=== PATIENT | male | born 1960 | race Caucasian/White ===

== ENCOUNTER → 2017-11-23 03:15 | Outpatient (CLI) | payer BC, SELFPAY ==
[2017-11-23 14:04] LABS: C-Reactive Protein 0.07 mg/dL (0.0-0.3); CREATININE 0.68 mg/dL (0.70-1.30); Potassium 4.5 mmol/L (3.5-5.1)
== END ==
PROVIDERS: PCP Family Medicine; Visit Provider Family Medicine
DX: M25.50 Pain in unspecified joint (principal); I10 Essential (primary) hypertension
CPT/HCPCS: 36415; 82565; 84132; 86140

== ENCOUNTER → 2017-11-24 01:35 | Outpatient (CLI) | payer BC, SELFPAY ==
--- NOTE | 2017-11-24 12:59 | SCREENCT_ITS ---
SYMPTOMS/DIAGNOSIS: [id number] SMOKER, ENCOUNTER FOR SCREENING FOR LUNG CA, Z13.[address] FOR LUNG CANCER SCREENING: The study was carried out according to the usual protocol. Emphysematous changes are noted in the lungs. There is no infiltrate. No pulmonary nodules are identified. The heart is not enlarged. Coronary artery calcifications is demonstrated. There are atherosclerotic changes involving the aorta with no evidence of an aneurysm. SUMMARY: This is a lung RAD category 1 examination. Followup surveillance with LDCT screening in 12 months is recommended. Lung-RAD Category: 1- Negative Lung- RAD Management of Findings: Continue annual LDCT screening in 12 months
== END ==
PROVIDERS: PCP Family Medicine; Visit Provider Family Medicine
DX: Z12.2 Encounter for screening for malignant neoplasm of respiratory organs (principal); F17.210 Nicotine dependence, cigarettes, uncomplicated; J43.9 Emphysema, unspecified; I70.0 Atherosclerosis of aorta
CPT/HCPCS: G0297

== ENCOUNTER 2018-01-27 06:10 | Day surgery (SDC) | payer BC, SELFPAY ==
[2018-01-27 06:17] VITALS: BP 155/107; PULSE 107; RESP 16; TEMP 37.7; O2SAT 96
--- NOTE | 2018-01-27 07:15 | COLE_ITS ---
Date of service: 01/27/18 Time of Service: 07:14 Colonoscopy Report Date of procedure: 01/27/18 Pre-op diagnosis general: Personal History of Colon Polyps Post-op diagnosis procedure note: other Procedure: Colonoscopy to the cecum Surgeon: Domingo Glass Anesthesia proc note operative: MAC (Katie Baer CRNA; ASA 2, Mallampati class II) Estimated blood loss (mL): 0 Pathology: none sent Complications: None Disposition: same day Indications: 57-year-old gentleman presenting for colorectal cancer screening by colonoscopy. He has a personal history of colon polyps with a tubular adenoma found last colonoscopy. He also has a family history of colorectal cancer; his brother was diagnosed with colon cancer in his 50s. The colonoscopy procedure was reviewed with him, and all the risks discussed. All his questions were answered to his satisfaction. Prep: Miralax/Dulcolax (Prep quality good) Procedure Start Time: 07:38 Procedure End Time: 07:50 Retraction Time: 8 min Findings: In examining the colon from cecum to anus, no abnormalities were noted. Procedure Description: The patient was seen in the day surgery waiting area. His identification was confirmed, and procedure check. He was then brought to the procedure room. Monitoring for telemetry, blood pressure, oxygen saturation, and end tidal CO2 monitoring were applied. An appropriate time out was performed to confirm, identification, allergies, medication, procedure, was performed. Sedation was titrated for affect by the BEAUTY SHOP MANAGER; Once adequate sedation was achieved, I performed a inspection of the external perineum, and a digitial rectal examination. No significant external abnormalities were noted. On digital rectal examination, there was no blood, no masses, good rectal tone, and a normal prostate. I advanced the colonoscope from the anus to the cecum under direct visualization. The cecum was identified by the ileal-cecal valve, and the appendiceal orifice. The scope was then withdrawn in circumferential manner from the cecum to the rectum. No abnormalites were noted in the colon. The scope was then withdrawn into the rectum, and retroflexed. No abnormalities were noted of the rectum or anorectal junction. The scope was then withdrawn, terminating the procedure. There were no complications during the procedure, and the patient tolerated the procedure well. He was returned to the day surgery recovery area in good condition. Plan: Will continue with routine screening for colorectal cancer according to current consensus guidelines, which is currently 5 years with a family history of colon cancer.
[2018-01-27] MEDS: Lactated Ringers 1,000 ML 30 ML IV (07:33)
--- NOTE | 2018-01-27 08:00 | W.PM.DSUDISC ---
Discharge Plan Disposition Patient Disposition: HOME Condition: Good Discharge Details Reason For Visit: Colorectal cancer screen Attending Provider: Domingo Glass Primary Care Provider: Jeffrey Cheng Home Meds and New Rx's Prescriptions: Continue aspirin [Aspir-81] 81 MG tablet,delayed release (DR/EC) 81 mg PO DAILY RF: 0 finasteride 5 MG tablet 5 mg PO HS Qty: 90 RF: 4 omeprazole 40 MG capsule,delayed release(DR/EC) 40 mg PO DAILY Qty: 90 RF: 3 lisinopril 5 MG tablet 5 mg PO DAILY Qty: 90 RF: 3 acetaminophen [Tylenol Extra Strength] 500 mg Tablet 1,000 mg PO Q6H PRNRF: 0 Discharge Instructions Instructions: Colonoscopy (DC) Activity:: Activity as Tolerated Diet:: As Tolerated Discharge Orders Discharge Orders: Discharge Order (Routine); Ordered 01/27/18 Ordered By: Domingo Glass DS: Diagnosis Discharge Diagnosis (1) History of adenomatous polyp of colon: Status: Chronic Asessment and Plan: Colonoscopy performed Colonoscopy Report Date of procedure: 01/27/18 Pre-op diagnosis general: Personal History of Colon Polyps Post-op diagnosis procedure note: other Procedure: Colonoscopy to the cecum Surgeon: Domingo Glass Anesthesia proc note operative: MAC (Katie Baer CRNA; ASA 2, Mallampati class II) Estimated blood loss (mL): 0 Pathology: none sent Complications: None Disposition: same day Indications: 57-year-old gentleman presenting for colorectal cancer screening by colonoscopy. He has a personal history of colon polyps with a tubular adenoma found last colonoscopy. He also has a family history of colorectal cancer; his brother was diagnosed with colon cancer in his 50s. The colonoscopy procedure was reviewed with him, and all the risks discussed. All his questions were answered to his satisfaction. Prep: Miralax/Dulcolax (Prep quality good) Procedure Start Time: 07:38 Procedure End Time: 07:50 Retraction Time: 8 min Findings: In examining the colon from cecum to anus, no abnormalities were noted. Procedure Description: The patient was seen in the day surgery waiting area. His identification was confirmed, and procedure check. He was then brought to the procedure room. Monitoring for telemetry, blood pressure, oxygen saturation, and end tidal CO2 monitoring were applied. An appropriate time out was performed to confirm, identification, allergies, medication, procedure, was performed. Sedation was titrated for affect by the DISTANCE LEARNING COORDINATOR; Once adequate sedation was achieved, I performed a inspection of the external perineum, and a digitial rectal examination. No significant external abnormalities were noted. On digital rectal examination, there was no blood, no masses, good rectal tone, and a normal prostate. I advanced the colonoscope from the anus to the cecum under direct visualization. The cecum was identified by the ileal-cecal valve, and the appendiceal orifice. The scope was then withdrawn in circumferential manner from the cecum to the rectum. No abnormalites were noted in the colon. The scope was then withdrawn into the rectum, and retroflexed. No abnormalities were noted of the rectum or anorectal junction. The scope was then withdrawn, terminating the procedure. There were no complications during the procedure, and the patient tolerated the procedure well. He was returned to the day surgery recovery area in good condition. Plan: Will continue with routine screening for colorectal cancer according to current consensus guidelines, which is currently 5 years with a family history of colon cancer. (2) Family history of colon cancer: Status: Chronic Asessment and Plan: see other
[2018-01-27 08:30] VITALS: BP 160/99; PULSE 86; RESP 16; TEMP 37; O2SAT 97
== END 2018-01-27 08:35 | disposition home or self-care (01) ==
PROVIDERS: PCP Family Medicine; Visit Provider Surgery
PROC: 0DJD8ZZ Inspection of Lower Intestinal Tract, Via Natural or Artificial Opening Endoscopic (ICD-10-PCS; CPT 45378; principal; 2018-01-27 07:30)
DX: Z12.11 Encounter for screening for malignant neoplasm of colon (principal); Z86.010 Personal history of colon polyps; Z80.0 Family history of malignant neoplasm of digestive organs; K21.9 Gastro-esophageal reflux disease without esophagitis; I10 Essential (primary) hypertension; F17.210 Nicotine dependence, cigarettes, uncomplicated
CPT/HCPCS: 45378

== ENCOUNTER 2019-12-28 22:16 | Outpatient (REF) | payer BC, SELFPAY ==
[2019-12-28 21:29] LABS: CREATININE 0.76 mg/dL (0.70-1.30); Calculated LDL 116 mg/dL (<100); Cholesterol 203 mg/dL (<200); Glucose 88 mg/dL (74-106); HDL Cholesterol 69 mg/dL (40-60); Potassium 4.3 mmol/L (3.5-5.1); Triglyceride 90 mg/dL (<150)
== END 2019-12-28 22:36 ==
LOC: LBN 22:16
PROVIDERS: PCP Family Medicine; Visit Provider Family Medicine
DX: I10 Essential (primary) hypertension (principal); E78.5 Hyperlipidemia, unspecified; R73.9 Hyperglycemia, unspecified
CPT/HCPCS: 80061; 82947; 82565; 84132

== ENCOUNTER 2020-12-08 23:33 | Outpatient (CLI) | payer BC, SELFPAY ==
--- NOTE | 2020-12-08 15:15 | DI.RAD_ITS ---
Exam(s) XR ABDOMEN FLAT UPRIGHT EXAM: 2D digital imaging was performed. CLINICAL HISTORY: R/O obstuction-- distention with liquid stool r10.9 abdominal pain. COMPARISON: No exams were available for comparison TECHNIQUE: Supine and uprightSupine and Lateral views of the abdomen was performed. FINDINGS: BOWEL GAS PATTERN: No distension. No free air. No significant stool visible. CALCIFICATIONS: No radiopaque calcifications. OSSEOUS STRUCTURES: Degenerative changes in the spine. OTHER FINDINGS: Lung bases clear. No organomegaly. IMPRESSION: 1. Nonobstructive bowel gas pattern. 2. No radiopaque calculi. 3. No free air. DATA REPOSITORY: RADIATION DOSE DELIVERED:
== END 2020-12-08 23:53 ==
PROVIDERS: PCP Family Medicine; Visit Provider Nurse Practitioner Family
DX: R10.9 Unspecified abdominal pain (principal)
CPT/HCPCS: 74019

== ENCOUNTER 2020-12-31 18:25 | Outpatient (REF) | payer BC, SELFPAY ==
[2020-12-31 18:47] LABS: CREATININE 0.8 mg/dL (0.70-1.30); Potassium 4.1 mmol/L (3.5-5.1)
[2021-01-01 19:42] LABS: PSA, Screening 3.2 ng/mL (0.0-3.5)
== END 2020-12-31 18:26 | disposition home or self-care (01) ==
LOC: LBN 18:25
PROVIDERS: PCP Family Medicine; Visit Provider Family Medicine
DX: I10 Essential (primary) hypertension (principal); Z12.5 Encounter for screening for malignant neoplasm of prostate
CPT/HCPCS: 84153; 82565; 84132

== ENCOUNTER 2021-10-15 01:15 | Outpatient (CLI) | payer BC, SELFPAY ==
--- OUTSIDE RECORDS SUMMARY | 2021-10-15 01:16 | XMS_ITS | Encounter Summary ---
:1960 Author Organization [facility] [place] [address] Care Team Providers Name Role Phone Jose Alberto Lindo DO Primary Care Provider Encounter Details Date Type Department Care Team Description 04/12/2014 Orders Only Vascular Surgery at Ivonne Fritz Bi lateral lower [facility] [place] [address] Social History Tobacco Use Types Packs/Day Years Used Date Never Assessed Sex Assigned at Date Recorded Not on file documented as of this encounter Plan of Treatment Not on filedocumented as of this encounter Results BEVERLY, legs, multiple levels (04/25/2014 9:34 AM EST) Component Value Ref Test Analysis Performed At [place] Communication Range Method Time Signature VB Text VASCUBASE Report Department: Vascular Surgery Lab Patient: [id number] (KURT BOJORQUEZ) CPT Code: 81060 ICD-9: 440.20; 729.5 Referring Physician: LULI LE Indication: ??Patient with bilateral lower extre mity pain and numbness R>L, ? PAD ICD9 Diagnosis Code: 440.20 Limb Pain [729.5]. Diabetes Mellitus: No Definitions: ?? BEVERLY = Ankle / Brachial Systolic Pressure I ndex, TBI = Toe / Brachial Systolic Pressure Index Findings: Right ?Pressure (mm Hg) ?? BEVERLY ??Waveform ? TBI ?? Brachial Artery ?167 ? Common Femoral Artery ?Triphasic ? Pop Fossa ?Biphasic-Rev ? Dorsalis Pedis (Ankle) Arter y ?150 ? 0.90 ??Bi-Triphasic ? Posterior Tibial (Ankle) Art sesar ??158 ? 0.95 ??Bi-Triphasic ? Great Toe ?71 ?0.43 ?? Left ? Pressure (mm Hg) ?? BEVERLY ??Waveform ? TBI ?? Brachial Artery ?165 ? Common Femoral Artery ?Triphasic ? Pop Fossa ?Biphasic-Rev ? Dorsalis Pedis (Ankle) Arter y ?153 ? 0.92 ??Bi-Triphasic ? Posterior Tibial (Ankle) Art sesar ??150 ? 0.90 ??Bi-Triphasic ? Great Toe ?96 ?0.57 ?? Interpretation: RIGHT: Mild lower extremity arterial occlusive disease to th e level of the calf. Toe-brachial index (moderate range) lower than ankle-b rachial index indicates presence of arterial occlusive disease in the distal calf and foot. LEFT: Mild lower extremity arterial occlusive disease. Comparison: ??No previous study in our vascular lab da tabase for comparison. Electronically Signed by: KIP LOZA on 2014-04-25 02:31:3 6 PM VB Text End of Report VASCUBASE Report Specimen (Source) Anatomical Collection Method Collection Time Re ceived Time Location / / Volume Laterality 04/25/2014 9:34 AM EST Luli Le MD VASCULAR ORDERABLES Performing Organization Address City/State/ZIP Code Phon e Number VASCUBASE documented in this encounter Visit Diagnoses Diagnosis Bilateral lower extremity pain Pain in limb documented in this encounter Care Teams Plating Inspector Relationship Specialty Start Date End Date Jose Alberto Lindo DO PCP - General 02/17/10 04/24/14 [address] [place] [address] documented as of this encounter
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
--- OUTSIDE RECORDS SUMMARY | 2021-10-15 01:16 | XMS_ITS | Encounter Summary ---
:1960 Author Organization [facility] [address] Care Team Providers Name Role Phone Jackson Mark MD Primary Care Provider Encounter Details Date Type Department Care Team Description 04/25/2014 Ancillary Vascular Surgery at [facility] lower Appointment [facility] [place] [address] Social History Tobacco Use Types Packs/Day Years Used Date Current Every Day Smoker 0.5 Alcohol Use Standard Drinks/Week Comments Not Asked 0 (1 standard drink = 0.6 oz pure alcoho l) Sex Assigned at Date Recorded Not on file documented as of this encounter Plan of Treatment Not on filedocumented as of this encounter Procedures Procedure Name Priority Date/Time Associated Diagnosis Comme nts BEVERLY, LEGS, MULTIPLE Routine 04/25/2014 9:34 AM Bilateral lower Results for this LEVELS EST extremity pain procedure are in the results section. documented in this encounter Results BEVERLY, legs, multiple levels (04/25/2014 9:34 AM EST) Component Value Ref Test Analysis Performed At [facility] Range Method Time Signature VB Text VASCUBASE Report Department: Vascular Surgery Lab Patient: [id number] (KURT BOJORQUEZ) CPT Code: 40726 ICD-9: 440.20; 729.5 Referring Physician: LULI LE [...] limb documented in this encounter Care Teams Principal Investigator Relationship Specialty Start Date End Date Jackson Mark MD PCP - General 04/25/14 documented as of this encounter
--- OUTSIDE RECORDS SUMMARY | 2021-10-15 01:16 | XMS_ITS | Clinical Summary ---
:1960 Author Organization [facility] [place] [address] Care Team Providers Name Role Phone Jackson Mark MD Primary Care Provider Allergies Active Allergy Reactions Severity Noted Date Comments Amoxicillin Trihydrate Sulfa (Sulfonamide Antibiotics) Medications Medication Sig Dispensed Refills Start Date End Date Status omeprazole (PRILOSEC) 40 Take 40 mg by 0 Active mg Capsule, Delayed mouth daily. Release(E.C.) cyanocobalamin 500 mcg Take 500 mcg by 0 Active Tablet mouth daily. Active Problems Problem Noted Date Bilateral leg pain 04/25/2014 Family History Medical History Relation Comments Hypertension Brother Coronary Artery Disease Father Coronary Artery Disease Mother Hyperlipidemia Mother Hypertension Mother Relation Status Comments Brother Father Mother Social History Tobacco Use Types Packs/Day Years Used Date Current Every Day Smoker 0.5 Alcohol Use Standard Drinks/Week Comments Not Asked 0 (1 standard drink = 0.6 oz pure alcoho l) Sex Assigned at Date Recorded Not on file Last Filed Vital Signs Vital Sign Reading [...] Mass Index 25.1 04/25/2014 10:13 AM EST Plan of Treatment Health Maintenance Due Date Last Done Comments Covid-19 Vaccine (#1) 1966 HIV screen 1979 Hepatitis C Screening 1979 Lipid Screening 1979 Tdap adult 1980 Tetanus vaccine 1980 Colonoscopy 2006 Zoster vaccine (1 of 2) 2011 Advance Directive 2016 Influenza (Flu) vaccine (1 of 1 - Influenza standard 11/26/2021 series) Care Teams Environmental Laboratory Technician Relationship Specialty Start Date End Date Jackson Mark MD PCP - General 04/25/14
--- OUTSIDE RECORDS SUMMARY | 2021-10-15 01:16 | XMS_ITS | Encounter Summary ---
:1960 [place] [address] Care Team Providers Name Role Phone Jackson Mark MD Primary Care Provider Encounter Details Date Type Department Care Team Description 01/31/2014 Orders Only Vascular Surgery at [facility] Amaya Faustin MD [facility] [place] [address] VASCULAR SURGERY [phone] [place], [place] [address] (Wo rk) Social History Tobacco Use Types Packs/Day Years Used Date Never Assessed Sex Assigned at Date Recorded Not on file documented as of this encounter Plan of Treatment Not on filedocumented as of this encounter Procedures Procedure Name Priority Date/Time Associated Comments Diagnosis FILM LIBRARY STORAGE Routine 01/31/2014 1:03 PM R esults for this ONLY ULTRASOUND EST procedure ar e in STUDY the results section. documented in this encounter Results Film Library- Storage only Ultrasound Study (01/31/2014 1:03 PM EST) Anatomical Region Laterality Modality Other Specimen (Source) Anatomical Collection Method Collection Time Re ceived Time Location / / Volume Laterality 01/31/2014 1:03 PM EST Narrative 04/25/2014 1:04 PM EST This is a Non-reportable exam Procedure Note RIVER, UNSIGNED REPORT - 04/25/2014Formatt ing of this note might be different from the original. This is a Non-reportable exam Amaya Faustin MD IMG FILM LIBRARY ORDERABLES documented in this encounter Visit Diagnoses Not on filedocumented in this encounter Care Teams Assistant Auto Center Manager Relationship Specialty Start Date End Date Jacksno Mark MD PCP - General 04/25/14 documented as of this encounter
== END 2021-10-15 01:16 | disposition home or self-care (01) ==
LOC: LBO 01:15
PROVIDERS: PCP Family Medicine; Visit Provider Urology
DX: R97.20 Elevated prostate specific antigen [PSA] (principal)
CPT/HCPCS: 36415; 84153

== ENCOUNTER 2021-10-30 15:56 | Outpatient (CLI) | payer BC, SELFPAY ==
--- NOTE | 2021-10-30 14:18 | DI.RAD_ITS ---
Exam(s) XR RIBS LT W PA LAT CHEST EXAM: XR RIBS LT W PA LAT CHEST CLINICAL HISTORY: Left rib pain, R07.81, PLEURODYNIA TECHNIQUE: 2D digital imaging was performed. COMPARISON: No exams were available for comparison FINDINGS: MEDIASTINUM: Normal. HEART: Normal. PULMONARY VASCULATURE: Normal. LUNGS: Clear. The lungs are hyperinflated suggesting underlying COPD. PLEURAL SPACE: No pleural effusion or pneumothorax. BONE:Within normal limits for the patient's age. LEFT RIBS: Normal. OTHER FINDINGS:Normal. IMPRESSION: 1. No acute pulmonary findings. 2. Unremarkable left ribs. DATA REPOSITORY: RADIATION DOSE DELIVERED:
== END 2021-10-30 16:16 ==
LOC: DI 15:59
PROVIDERS: PCP Family Medicine; Visit Provider Physician Assistant Medical
DX: R07.81 Pleurodynia (principal)
CPT/HCPCS: 71046; 71100

== ENCOUNTER 2023-07-18 15:20 | Outpatient (CLI) | payer BC, SELFPAY ==
[2023-07-18 13:56] LABS: HCT 40.8 % (40.0-50.0); MCH 33.6 pg (27.0-33.0); MCHC 36.8 % (32.0-36.0); MCV 92 fL (80-95); MPV 9.2 fL (8.0-11.0); Platelet Count 234 10^3/uL (130-400); RBC 4.46 10^6/uL (4.36-5.78); RDW 12.5 % (11.8-14.1); RDW-SD 42.2 fL; WBC 6.68 10^3/uL (4.4-10.8)
[2023-07-18 14:44] LABS: ALT 26 U/L (16-63); AST 32 U/L (15-37); Albumin 4.1 g/dL (3.4-5.0); Alkaline Phosphatase 77 U/L (46-116); Anion Gap 10.9 mmol/L (3-11); BUN 11 mg/dL (7-18); Bilirubin, Total 0.5 mg/dL (0.2-1.0); CO2 26.1 mmol/L (21.0-32.0); Calcium 9.2 mg/dL (8.5-10.1); Calculated LDL 84 mg/dL (<100); Chloride 96 mmol/L (98-107); Cholesterol 187 mg/dL (<200); Glucose 93 mg/dL (74-106); HDL Cholesterol 92 mg/dL (40-60); Potassium 4.8 mmol/L (3.5-5.1); Sodium 133 mmol/L (136-145); Total Protein 8.3 g/dL (6.4-8.2); Triglyceride 57 mg/dL (<150)
[2023-07-18 23:02] LABS: PSA, Screening 3.5 ng/mL (<=4.5)
== END 2023-07-18 15:21 | disposition home or self-care (01) ==
LOC: LBO 15:20
PROVIDERS: PCP Family Medicine; Visit Provider Surgery
DX: I10 Essential (primary) hypertension (principal); D12.6 Benign neoplasm of colon, unspecified; R97.20 Elevated prostate specific antigen [PSA]; Z80.0 Family history of malignant neoplasm of digestive organs; F17.200 Nicotine dependence, unspecified, uncomplicated; Z12.5 Encounter for screening for malignant neoplasm of prostate; E78.5 Hyperlipidemia, unspecified
CPT/HCPCS: 36415; 80053; 80061; 84153; 85027

== ENCOUNTER 2023-08-05 08:43 | Day surgery (SDC) | payer BC, SELFPAY ==
--- NOTE | 2023-08-04 16:33 | W.COLOREPORT ---
Date of service: 08/05/23 Time of Service: 11:15 Colonoscopy Report Date of procedure: 08/05/23 Pre-op diagnosis general: Hx os Adenomatous polyps 2015/Mother/brother CRC in 50's Post-op diagnosis procedure note: other (Polyps and diverticula) Surgeon: Emily Laguna Anesthesia Type: General:No Airway Estimated blood loss (mL): 1 Pathology: other Complications: None Disposition: same day Prep: Miralax/Dulcolax Retraction Time: 10 Procedure Description: After informed consent was obtained the patient was taken to the procedure room and placed in a left decubitous position. Monitors were applied and a time out was done. The patients name, date of , procedure, allergies to medications and metal in their body was reviewed. The patient was then sedated. Once sedated and comfortable a rectal exam was done. External exam was normal. Internal exam revealed a normal sphincter tone and no palpable masses. The prostate no palpable masses The scope was then introduced and retrofelexed. Grade 2 internal hemorrhoids x 3 columns were identified. The scope was then advanced to the cecum without difficulty. The TI and appendiceal orifice were identified. The scope was then slowly retracted over 10 minutes back into the rectum. Polyps were removed at he has x 2 flat 5 cm polyps at 70 cm and 30 cm. These were both removed with a cold biting forcep. All specimen is retrieved and no bleeding is noted. He has multiple small diverticula confined to the sigmoid colon. There is no signs of active bleeding or infection. Mucosa is pink and healthy with a normal vascular pattern.. The scope was removed and the patient was woken up and taken back to Same day surgery in stable condition. The patient tolerated the procedure well and there were no immediate complications. Follow up: The patient should follow up in 5 years unless they develop changes in bowel habits or other new gastrointestinal complaints.
--- NOTE | 2023-08-04 16:34 | PDOC.DSDIS_ITS ---
Date of service: 08/05/23 Time of Service: 11:12 Discharge Plan Disposition Patient Disposition: Home Condition: Good Discharge Details Reason For Visit: Colon Scope Attending Provider: Emily Laguna Primary Care Provider: Jeffrey Cheng Home Meds and New Rx's Prescriptions: Continued (DME) Aerochamber MV Spacer See Rx Instructions .Route Qty: 1 0RF Rx Instructions: As directed lisinopril 5 mg tablet 5 mg PO DAILY Qty: 90 3RF omeprazole 40 mg capsule,delayed release(DR/EC) 40 mg PO DAILY Qty: 90 3RF finasteride 5 mg tablet 5 mg PO DAILY Qty: 90 4RF tamsulosin 0.4 mg capsule 0.4 mg PO DAILY Qty: 90 4RF Discontinued polyethylene glycol 3350 17 gram/dose powder 238 g PO ONCE Qty: 238 0RF Rx Instructions: take per colonoscopy instructions bisacodyl [Dulcolax (bisacodyl)] 5 mg tablet,delayed release (DR/EC) 5 mg PO ONCE Qty: 4 0RF Rx Instructions: take per colonoscopy instructions Discharge Instructions Additional Instructions: DSU Colonoscopy Post- Op Instructions Instructions for Everyone who is given Anesthesia: For your safety, please do the following for the next twenty-four (24) hours: *Do Not operate a motor vehicle (car, truck, motorcycle, etc.) *Do Not drink alcoholic beverages or use any recreational drugs for the first 24 hours or while taking pain medications. The medications in your body may have a reaction that can be dangerous. *Do Not make any important decisions or sign any important papers. Findings: -Diverticulosis. Make sure you are moving your bowels on a regular basis and not straining to go to the bathroom. If you find you are having issues with chronic constipation or straining, then it is recommended you start a fiber product such as Metamucil. -Polyp You do have significant COPD and did not tolerate anesthesia well. You need to see a biodiesel product manager (lung doctor) and stop smoking Follow up: Repeat colonoscopy in 5 years time 1. No lifting over 20 pounds or strenuous activity for the first 24 hours after your procedure. After 24 hours there are no restrictions on your activity but you may feel fatigued for a few days. 2. After you arrive home you may have a light meal and return to your normal diet as you can tolerate it without feeling sick to your stomach. 3. You may have a bloated, gaseous feeling in your belly (abdomen) after a colonoscopy. Passing gas and belching will help. Walking or lying down on your left side with your knees flexed may relieve the discomfort. Call the office at [phone] (Office) or [phone] (Hospital) right away if you notice any of the following: a.Vomiting of blood or ?coffee ground stools?. b.Rectal bleeding 1Tbsp, blood clots or continuous bleeding. c.Severe belly (abdominal) pain. d.A hard distended belly (abdomen) and an inability to pass gas. 4. Please don?t expect to have a normal BM (bowel movement) for 2-3 days after your procedure. 5. If there are questions regarding the findings of your procedure, please contact your doctor 6. If you are unable to contact your doctor with a problem, contact the hospital at [phone]. 7. Continue all your regular medications unless directed otherwise. I understand the above instructions and have no questions. Signature of Patient or Adult Escort Name of Responsible Adult Escort Signature of Nurse Date/Time Activity:: see above Diet:: see above Discharge Orders Discharge Orders: Discharge Order (Routine); Ordered 08/05/23 Ordered By: Emily Laguna DS: Diagnosis Discharge Diagnosis (1) Hypertension: Status: Acute (2) Atherosclerosis of aorta: Status: Acute (3) Hearing loss: Status: Acute (4) Blindness of one eye: Status: Acute (5) Tubular adenoma of colon: Status: Resolved (6) Family history of colon cancer: Status: Chronic Asessment and Plan: The patient is seen and examined after their colonoscopy.? The patient has been able to pass gas.? They are not having abdominal pain.? They have been able to tolerate liquids and a snack.? They do not have any nausea or vomiting.? They are not having any chest pain or shortness of breath.??? They are not having any rectal bleeding. Their vital signs have been stable-see nursing notes. We discussed findings during their colonoscopy, and any biopsies that were done/polyps that were removed. The patient will be sent a letter with any biopsy results, and when to repeat the colonoscopy.-see discharge instructions. Patient was given explicit instructions to follow-up regarding colonoscopy-refer to discharge instructions.? We reviewed resumption of medications. Patient verbalized understanding and discharged in stable and satisfactory condition- See nursing notes. (7) Tubular adenoma: Status: Acute (8) COPD (chronic obstructive pulmonary disease): Status: Chronic (9) Emphysema lung: Status: Acute (10) Tobacco use disorder: Status: Acute (11) Diverticula of colon: Status: Acute
[2023-08-05 09:13] VITALS: BP 148/84; PULSE 106; RESP 16; TEMP 36.6; O2SAT 98
[2023-08-05] MEDS: Lactated Ringers 1,000 ML 80 ML IV (09:16)
--- NOTE | 2023-08-05 10:13 | ANES.PREOP_ITS ---
General Info Date of Service Date Performed: 08/05/23 Height: 5 ft 7.75 in Weight: 69.4 kg Body Mass Index (BMI): 23.4 Surgical Procedure: Operation Date: 08/05/23 09:50 Proposed Procedure Side Surgeon lita Laguna, DO Meds Allergies and Home Medications Allergies Allergy/AdvReac Type Severity Reaction Status Date / Time Penicillins Allergy Severe Anaphylaxsi Verified 08/05/23 08:52 s Sulfa (Sulfonamide Allergy Severe Skin Rash Verified 08/05/23 08:52 Antibiotics) cyanocobalamin (vitamin B12) AdvReac Unknown Diarrhea/GI Verified 08/05/23 08:52 Home Medication Medication Instructions Recorded finasteride 5 mg tablet 5 mg PO DAILY prostate #90 tabs 07/16/22 tamsulosin 0.4 mg capsule 0.4 mg PO DAILY urination #90 caps 07/16/22 inhalational spacing device #1 ea 09/23/22 (Aerochamber MV spacer) lisinopril 5 mg tablet 5 mg PO DAILY #90 tab-caps 02/24/23 omeprazole 40 mg capsule,delayed 40 mg PO DAILY #90 tab-caps 02/24/23 release Current Visit Medications: Current Medications Generic Name Dose Route Start Last Admin Trade Name Freq PRN Reason Stop Dose Admin Hyoscyamine Sulfate 0.125 mg 08/05/23 04:17 Hyoscyamine 0.125 Mg Sl/Oral/Chew SL 09/04/23 04:16 DIRECTED PRN Ringer's Solution 1,000 mls @ 80 mls/hr 08/05/23 06:00 08/05/23 09:16 IV 08/05/23 23:59 80 mls/hr INFUSION SHILPA Administration IV Miscellaneous Supplies 1 each 08/05/23 06:00 Iv Access IV 08/05/23 23:59 DIRECTED SHILPA Ondansetron HCl 4 mg 08/05/23 04:17 Ondansetron 4 Mg/2 Ml Vial IVP 09/04/23 04:16 Q4H PRN PRN Nausea / Vomiting Sodium Chloride 0 ml 08/05/23 06:00 Normal Saline Flush 10 Ml Syr IV 08/05/23 23:59 PRN PRN Sodium Chloride 0 ml 08/05/23 06:00 Normal Saline 10 Ml Vial IJ 08/05/23 23:59 DIRECTED PRN Sterile Water 0 ml 08/05/23 06:00 Water,Injection,Sterile 10 Ml Vial IJ 08/05/23 23:59 DIRECTED PRN PFSH Active Problems Active Problems: Problem Status Onset Code Emphysema lung J43.9 COPD (chronic obstructive pulmonary disease) J44.9 Atherosclerosis of aorta I70.0 Acute sinusitis J01.90 Sensorineural hearing loss of left ear H90.5 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 Chronic serous otitis media, right ear H65.21 Rising PSA level R97.20 Depression F32.A Abdominal pain R10.9 Annual physical exam Z00.00 H/O colonoscopy Z98.890 Family history of colon cancer Z80.0 History of adenomatous polyp of colon Z86.010 Tubular adenoma of colon 07/12/14 D12.6 Tubular adenoma 07/19/14 D36.9 Tobacco use disorder F17.200 Pneumonia, organism unspecified J18.9 Hypertension 11/27/14 I10 Hearing loss 02/24/86 H91.90 Family hx of prostate cancer Z80.42 Blindness of one eye 02/24/86 H54.40 Medical History Medical History Abnormal colonoscopy (07/12/14) 07/12/14, Dr Glass tubular adenoma Family history of prostate cancer Hearing loss Blindness of one eye (L) Pneumonia Tobacco use disorder Tobacco Smoking/Tobacco Use Status: Current every day Tobacco Type: cigarettes Smokeless tobacco user: other (Cigarettes) Passive smoking exposure: Yes Second hand exposure: Yes Alcohol Alcohol Intake: current Alcohol intake frequency: a few times a week Alcohol type: beer Substance Use Substance use: Occasionally Substance use type: marijuana Vital Signs and Lab Results Vital Signs Most Recent Vital Signs in EMR: Most Recent Vital Signs Temp Pulse Resp BP Pulse Ox 36.6 C 106 H 16 148/84 H 98 08/05/23 09:13 08/05/23 09:13 08/05/23 09:13 08/05/23 09:13 08/05/23 09:13 Lab Results Blood Type / Crossmatch: No Data to Display Complete Blood Count: White Blood Count 6.68 10^3/uL (4.4-10.8) 07/18/23 13:35 Red Blood Count 4.46 10^6/uL (4.36-5.78) 07/18/23 13:35 Hemoglobin 15.0 g/dL (13.5-17.5) 07/18/23 13:35 Hematocrit 40.8 % (40.0-50.0) 07/18/23 13:35 Platelet Count 234 10^3/uL (130-400) 07/18/23 13:35 Complete Metabolic Panel: Sodium 133 mmol/L (136-145) L 07/18/23 13:35 Potassium 4.8 mmol/L (3.5-5.1) 07/18/23 13:35 Chloride 96 mmol/L (98-107) L 07/18/23 13:35 Carbon Dioxide 26.1 mmol/L (21.0-32.0) 07/18/23 13:35 BUN 11 mg/dL (7-18) 07/18/23 13:35 Creatinine 1.0 mg/dL (0.70-1.30) 07/18/23 13:35 Est GFR (CKD-EPI 2020) 85.10 (mL/min/1.73m2) 07/18/23 13:35 Calcium 9.2 mg/dL (8.5-10.1) 07/18/23 13:35 Albumin 4.1 g/dL (3.4-5.0) 07/18/23 13:35 Glucose 93 mg/dL (74-106) 07/18/23 13:35 Liver Function Panel: Alanine Aminotransferase (ALT/SGPT) 26 U/L (16-63) 07/18/23 13: 35 Aspartate Amino Transf (AST/SGOT) 32 U/L (15-37) 07/18/23 13:35 Coagulation Panel: No Data to Display Cardiac Panel: No Data to Display Arterial Blood Gas: No Data to Display Venous Blood Gas: No Data to Display Pancreas Panel: No Data to Display Thyroid Panel: No Data to Display Infectious Disease: No Data to Display Blood Cultures: No Data to Display Toxicology Panel: No Data to Display Imaging and Studies Imaging and Studies Study information below may be from another EMR and interpreted by another provider. Please see original notes in EMR for more complete details. Echocardiogram Summary: 03/2014: SUMMARY: Conclusions: Essentially normal cardiac anatomy and function. Estimated LVEF of 72%. No significant valvular disease and no evidence for rheumatic heart disease. Carotid Artery Summary:: 01/2014: SUMMARY: Calcific plaque, greater in the left common carotid artery. No evidence of significant interval carotid artery stenosis. Anesthesia Assessment and Plan Anesthesia History Personal History: No History of Anesthesia Complications Family History: No Family History of Anesthesia Complications Exercise Tolerance Exercise Tolerance: Metabolic Equivalents>4 Pertinent Negatives Pertinent Negatives: No Symptoms of GERD and No Major Cardiovascular Symptoms or Complaints Cardiac & Pulmonary Exam Cardiac Exam: Normal S1/S2 Heart Sounds Pulmonary Exam: Clear Bilateral Breath Sounds Implantable Cardiac Device Does patient have a Pacemaker or an ICD?: No Airway Exam Known Difficult Airway: No Mallampati Class: 2 Mouth Opening: Normal (> 3cm) Thyromental Distance: Greater than 3 cm Neck Range of Motion: Full ROM Neck Circumference: Normal Teeth Condition: Generalized Poor Dentition ASA Classification ASA Score: ASA 2 Emergency Case?: No NPO Status NPO Status: NPO Clears >2 hours, Solids >8 hours Anesthesia Plan Resuscitation Status: Full Code Anesthesia Technique: General Anesthesia Airway Planned: Natural Airway Monitors Used: Standard Monitors
[2023-08-05 10:16] VITALS: BMI 23.4
[2023-08-05] MEDS: Albuterol/Ipratropium 3 ML UPD VIAL (10:38)
--- NOTE | 2023-08-05 10:51 | BOWEL_PTH ---
PATIENT: Kurt Bojorquez LOC: [facility] U#:[id number] AGE/SX: 63/M ROOM: RE08/05/[address]: Emily Laguna : 1960 BED: DIS: 08/05/2023 SPEC #: [id number] RECD: 08/05/23 12:52 STATUS: CARYN REQ #: [id number] CHELO: 08/05/23 10:[address]: Emily Laguna DEPT: Surgical Specimen RECD BY: Shameka Locke ENTERED: 08/05/23 12:53 SP TYPE: Bowel OTHR DR: Jeffrey Cheng MD Tissues: 1 - BIOPSY BOWEL 2 - BIOPSY BOWEL Procedures: GROSS AND MICRO LEVEL 4 Comments: [id number]
[2023-08-05 11:03] VITALS: BP 145/82; PULSE 95; RESP 20; TEMP 36.2; O2SAT 99
[2023-08-05 11:33] VITALS: BP 149/85; PULSE 85; RESP 20; TEMP 36.4; O2SAT 98
--- NOTE | 2023-08-05 12:05 | W.ANESPOSTOP ---
Postoperative Evaluation Date, Time and Location Date Performed: 08/05/23 Time Performed: 11:15 Patient Location: Day Surgery Unit Vital Signs Most Recent Imported Vital Signs: Most Recent Vital Signs Temp Pulse Resp BP Pulse Ox 36.4 C L 85 20 149/85 H 98 08/05/23 11:33 08/05/23 11:33 08/05/23 11:33 08/05/23 11:33 08/05/23 11:33 Pain Score Most Recent Pain Score: Most Recent Pain Score Pain Level 0 08/05/23 11:33 Assessment Mental Status: Awake (Alert & Oriented to Patient Baseline) Airway and Respiratory Function: Patent airway with normal (patient baseline) respiratory exam Cardiovascular Function: Hemodynamically Stable Hydration Status: Adequately Hydrated Nausea & Vomiting: No Nausea or Vomiting Pain: Pt. Denies Any Pain Peripheral Nerve Block: Patient did not receive a nerve block Teaching Patient Teaching: Advised to seek followup for the following concerns (See explanation) (Pulmonology) Concerns: Other
== END 2023-08-05 11:55 | disposition home or self-care (01) ==
LOC: SUR 08:43
PROVIDERS: PCP Family Medicine; Visit Provider Surgery
PROC: 0DJD8ZZ Inspection of Lower Intestinal Tract, Via Natural or Artificial Opening Endoscopic (ICD-10-PCS; CPT 45378; principal; 2023-08-05 09:45)
DX: Z80.0 Family history of malignant neoplasm of digestive organs; K64.1 Second degree hemorrhoids; Z12.11 Encounter for screening for malignant neoplasm of colon; F17.210 Nicotine dependence, cigarettes, uncomplicated; K57.30 Diverticulosis of large intestine without perforation or abscess without bleeding; K63.5 Polyp of colon
CPT/HCPCS: 45380; 88305; J2001; J2250; J2371; J2704; J3010; J7620

== ENCOUNTER 2023-10-24 15:28 | Outpatient (REF) | payer BC, SELFPAY ==
--- OUTSIDE RECORDS SUMMARY | 2023-10-24 15:31 | XMS_ITS | Referral Summary ---
Author Organization [facility] Address [address] [place] [address] Care Team Providers Care Supervisor Of Way Name Role Phone Jackson Mark MD Primary Care Provide r Encounters Date Type Department Care Team Description 08/05/2023 Lab Requisition [facility] Pathology & Laboratory Medicine - [address] [address] Emily Laguna, Diverticulosis of large intestine without perforation or abscess without bleeding; Family history of malignant neoplasm of digestive organs; Benign neoplasm of colon, unspecified from Last 3 Months Social History Tobacco Use Types Packs/Day Years Used Date Smoking Tobacco: Never Assessed Sex and Gender Information Value Date Recorded Sex Assigned at Not on file Gender Identity Not on file Sexual Orientation Not on file Plan of Treatment Not on file Procedures Procedure Name Priority Date/Time Associated Diagnosis Comments SURGICAL PATHOLOGY Today 08/05/2023 10 :51 EDT Diverticulosis of large intestine without perforation or abscess without bleeding Family history of malignant neoplasm of digestive organs Benign neoplasm of colon, unspecified from Last 3 Months Results * SURGICAL PATHOLOGY (08/05/2023 10:51 EDT) Note to Patient The following pathology results have been interpreted by your pathologist and may be available to you before your health provider has had the opportunity to review them. Please allow time for your provider to receive these results and explore management options, if applicable. 08/09/2023 8:38 EDT [facility] Final Diagnosis A. COLON, 70 CMS, POLYP, BIOPSY: - Colonic mucosa with no significant diagnostic abnormalities. - No definite polyp identified. - Deeper sections x3 examined. B. COLON, 30 CMS, POLYP, BIOPSY: - Colonic mucosa with focal hyperplastic change. - Deeper sections x3 examined. 08/09/2023 8:38 [facility] Attestation By the signature below, the attending physician certifies that they have 1) personally conducted a gross and/or microscopic examination of the described specimen(s), and/or personally interpreted the results of laboratory testing of the described specimen(s), and 2) personally rendered or confirmed the above diagnosis. 08/09/2023 8:38 [facility] at 0838 Clinical History History of colon polyps, diverticula 08/09/2023 8:38 [facility] Gross Description A. Received in formalin labelled with proper patient identification (initials G, K) and colon polyp at 70 cm is a single fragment of covarrubias tissue (0.2 x 0.2 x 0.2 cm). The specimen is entirely submitted in A1. B. Received in formalin labelled with proper patient identification (initials G, K) and colon polyp at 30 cm are 2 fragments of covarrubias tissue (0.2 x 0.2 x 0.2 cm and 0.3 x 0.3 x 0.2 cm). The specimen is entirely submitted in B1. MARV ZELAYA(ASCP) 08/08/2023 7:53 08/09/2023 8:38 [facility] Performing Lab [facility] 08/09/2023 8:38 [facility] Scanned Images 08/09/2023 8:38 [facility] Tissue COLON STRUCTURE / Unknown 08/05/2023 10:51 EDT 08/05/2023 18:07 EDT Tissue specimen (specimen) COLON STRUCTURE / Unknown 08/05/2023 10:51 EDT 08/05/2023 18:07 EDT Emily Laguna DO PATHOLOGY ORDERABLES [facility] [address] [place] [id number] from Last 3 Months Care Teams Supervisor Of Way Relationship Specialty Start Date End Date Jackson Mark MD [address] [place] [phone] PCP - General 07/16/14
--- OUTSIDE RECORDS SUMMARY | 2023-10-24 15:31 | XMS_ITS | Encounter Summary ---
Author Organization [facility] Address [address] [place] [address] Care Team Providers Care Veterinary Surgery Technician Name Role Phone Jackson Mark MD Primary Care Provide r Encounter Details Date Type Department Care Team (Late st Contact Info) Description 10/15/2021 Lab Requisition [facility] Pathology & Laboratory Medicine - [facility] [address] [place], [place] [id number] Outr Resulting Lab, Provider Social History Tobacco Use Types Packs/Day Years Used Date Smoking Tobacco: Never Assessed Sex and Gender Information Value Date Recorded Sex Assigned at Not on file Gender Identity Not on file Sexual Orientation Not on file documented as of this encounter Plan of Treatment Not on file documented as of this encounter Procedures Procedure Name Priority Date/Time Associated Diagnosis Comments PSA TOTAL, DIAGNOSTIC Routine 10/15/2021 14:55 EDT documented in this encounter Results * PSA TOTAL, DIAGNOSTIC (10/15/2021 14:55 EDT) PSA 2.0 <=4.5 ng/mL 10/15/2021 22:[address] [facility] Blood VENOUS BLOOD / Unknown 10/15/2021 14:55 EDT 10/15/2021 21:[address] [facility] - 10/15/2021 22:36 EDT NOTE: Serum PSA concentration should not be interpreted as absolute evidence for the presence or absence of malignant disease. Assayed on [employer] XPT using chemiluminescent technology.??Values obtained by using different assay methods cannot be used interchangeably. Provider Outr Resulting Lab CHEMISTRY & BLOOD GAS ORDERABLES [facility] [address] [place] [address] documented in this encounter Visit Diagnoses Not on filedocumented in this encounter Care Teams Veterinary Surgery Technician Relationship Specialty Start Date End Date Jackson Mark MD [address] [place] [phone] PCP - General 07/16/14 documented as of this encounter
--- OUTSIDE RECORDS SUMMARY | 2023-10-24 15:31 | XMS_ITS | Encounter Summary ---
Author Organization [facility] Address [address] [place] [address] Care Team Providers Care Ambulatory Care Coordinator Name Role Phone Jackson Mark MD Primary Care Provide r Encounter Details Date Type Department Care Team (Late st Contact Info) Description 08/05/2023 Lab Requisition [facility] Pathology & Laboratory Medicine - [facility] [address] [place] [address] Emily Laguna, DO [address] [place], [place] [address] Diverticulosis of large intestine without perforation or abscess without bleeding; Family history of malignant neoplasm of digestive organs; Benign neoplasm of colon, unspecified Social History Tobacco Use Types Packs/Day Years [...] digestive organs Benign neoplasm of colon, unspecified documented in this encounter Results * SURGICAL PATHOLOGY (08/05/2023 10:51 EDT) Note to Patient The following pathology results have been interpreted by your pathologist and may be available to you before your health provider has had the opportunity to review them. Please allow time for your provider to receive these results and explore management options, if applicable. 08/09/2023 8:38 [facility] Final Diagnosis A. COLON, 70 CMS, POLYP, BIOPSY: - Colonic mucosa with no significant diagnostic abnormalities. - No definite polyp identified. - Deeper sections x3 examined. B. COLON, 30 CMS, POLYP, BIOPSY: - Colonic mucosa with focal hyperplastic change. - Deeper sections x3 examined. 08/09/2023 8:38 [facility] Attestation By the signature below, the attending physician certifies that they have 1) personally conducted a gross and/or microscopic examination of the described specimen(s), and/or personally interpreted the results of laboratory testing of the described specimen(s), and 2) personally rendered or confirmed the above diagnosis. 08/09/2023 8:38 [facility] at 0838 Clinical History History of colon polyps, diverticula 08/09/2023 8:38 [facility] Gross Description A. [...] B1. MARV ZELAYA(ASCP) 08/08/2023 7:53 08/09/2023 8:38 [facility] Performing Lab [facility] 08/09/2023 8:38 [facility] Scanned Images 08/09/2023 8:38 [facility] Tissue COLON STRUCTURE / Unknown 08/05/2023 10:51 EDT 08/05/2023 18:07 EDT Tissue specimen (specimen) COLON STRUCTURE / Unknown 08/05/2023 10:51 EDT 08/05/2023 18:07 EDT Emily Laguna DO PATHOLOGY ORDERABLES [facility] [address] [place] [address] documented in this encounter Visit Diagnoses Diagnosis Diverticulosis of large intestine without perforation or abscess without bleeding Diverticulosis of colon (without mention of hemorrhage) Family history of malignant neoplasm of digestive organs Benign neoplasm of colon, unspecified documented in this encounter Care Teams Ambulatory Care Coordinator Relationship Specialty Start Date End Date Jackson Mark MD [address] [place] [address] [phone] PCP - General 07/16/14 documented as of this encounter
--- OUTSIDE RECORDS SUMMARY | 2023-10-24 15:31 | XMS_ITS | Encounter Summary ---
Author Organization [facility] Address [facility] [place] [address] Care Team Providers Care Calender Roll Press Operator Name Role Phone Dannie Velazquez MD Primary Care Provider [phone] Reason for Visit * Reason Comments Establish Care B leg pain Encounter Details Date Type Department Care Team (Late st Contact Info) Description 04/25/2014 10:30 AM EST Office [place] [address] Amaya Faustin MD [facility] [place] [address] PVD (peripheral vascular disease) with claudication Discharge Disposition: Home Social History Tobacco Use Types Packs/Day Years Used Date Smoking Tobacco: Every Day Cigarettes Alcohol Use Standard Drinks/Week Comments Not Asked 0 (1 standard drink = 0.6 oz pur e alcohol) Sex and Gender Information Value Date Recorded [...] EST documented in this encounter Patient Instructions * Patient Instructions* Amaya Faustin MD - 04/25/2014 11:27 AM EST Please call our office if you notice decrease in walking distance, pain in your foot that wakes youat night and is relieved with getting up or hanging it over the side of the bed or you have foot wound that will not heal. Follow up if your walking worsens documented in this encounter Progress Notes * Alphonso David MD - 04/25/2014 10:42 AM EST Vascular Surgery Office Consultation Note Reason for Consult: We are seeing Kurt Bojorquez at the request of Dr. DANNIE VELAZQUEZ MD in consultation for bilateral leg pain. I have reviewed the available records, interviewed and examined the patient. History of Present Illness: Kurt Bojorquez is a 53 y.o. male who presents to [facility] vascular clinic with pain in both legs. He describes several different types of leg pain. First a general aching pain in the legs that he experiences after a day of standing. 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 Accompanying [...] legs, as if someone placed a hot pad on his skin. He experiences this most often in his lateral thighs. Episodes of this type of pain are intermittent and do not correlate to position or activity level. Atherosclerotic Risk Factors: (no) DM (yes) HTN (unknown) HLD (yes) Smoking (since age [age], has cut down from 1.5 to 0.5 pack/day in last month) Other Vascular Risk Factors: (no) CAD: Previous [place], angina (no) CHF (no) Arrhythmia (no) COPD [...] not lifestyle limiting at the moment and therefore no intervention is warranted at this time. - [...] on file documented as of this encounter Visit Diagnoses Diagnosis PVD (peripheral vascular disease) with claudication Peripheral vascular disease, unspecified documented in this encounter Care Teams Calender Roll Press Operator Relationship Specialty Start Date End Date Dannie Velazquez MD PCP - General 04/25/14 documented as of this encounter
--- OUTSIDE RECORDS SUMMARY | 2023-10-24 15:31 | XMS_ITS | Encounter Summary ---
Author Organization [facility] Address [address] [place] [address] Care Team Providers Care Geology Scientist Name Role Phone Unavailable Primary Care Provider Unavailabl e Encounter Details Date Type Department Care Team (Latest Contact Info) Description 04/30/2013 7:53 EST - 04/30/2013 23:59 EST Hospital Encounter [address] [address] Unknown, Provider, Discharge Disposition: Home or Self Care Social History Tobacco Use Types Packs/Day Years Used Date Smoking Tobacco: Never Assessed Sex and Gender Information Value Date Recorded Sex Assigned at Not on file Gender Identity Not on file Sexual Orientation Not on file documented as of this encounter Discharge Disposition Disposition Code Departure Means Destination Home or Self [facility] documented in this encounter Plan of Treatment Not on file documented as of this encounter Visit Diagnoses Not on filedocumented in this encounter
--- OUTSIDE RECORDS SUMMARY | 2023-10-24 15:31 | XMS_ITS | Encounter Summary ---
Author Organization [facility] Address [address] [place] [address] Care Team Providers Care Director Clinical Research Name Role Phone Jackson Mark MD Primary Care Provide r Encounter Details Date Type Department Care Team (Late st Contact Info) Description 07/18/2023 Lab Requisition [facility] Pathology & Laboratory Medicine - [facility] [address] [place], [place] [id number] Outr Resulting Lab, Provider Social History Tobacco [...] Associated Diagnosis Comments PSA TOTAL, DIAGNOSTIC Routine 07/18/2023 13:35 EDT documented in this encounter Results * PSA TOTAL, DIAGNOSTIC (07/18/2023 13:35 EDT) PSA 3.5 <=4.5 ng/mL 07/18/2023 22:57 EDT [facility] Blood VENOUS BLOOD / Unknown 07/18/2023 13:35 EDT 07/18/2023 21:45 EDT Narrative [facility] - 07/18/2023 22:57 EDT NOTE: Serum PSA concentration should not be interpreted as absolute evidence for the presence or absence of malignant disease. Assayed on Siemens [employer] Islandaur XPT using chemiluminescent technology.??Values obtained by using different assay methods cannot be used interchangeably. Provider Outr Resulting Lab CHEMISTRY & BLOOD GAS ORDERABLES [facility] [address] [place] [address] documented in this encounter Visit Diagnoses Not on filedocumented in this encounter Care Teams Director Clinical Research Relationship Specialty Start Date End Date Jackson Mark MD [address] [place] [phone] PCP - General 07/16/14 documented as of this encounter
--- OUTSIDE RECORDS SUMMARY | 2023-10-24 15:31 | XMS_ITS | Encounter Summary ---
Author Organization [facility] Address [address] [place] [address] Care Team Providers Care Public Housing Interviewer Name Role Phone Jose Alberto Lindo DO Primary Care Provider [phone] Encounter Details Date Type Department Care Team (Latest Contact Info) Description 07/12/2014 8:13 EDT - 07/12/2014 23:59 EDT Hospital Encounter [address] [address] Unknown, Provider, Discharge Disposition: Home or Self Care Social History Tobacco Use Types Packs/Day Years Used Date Smoking Tobacco: Never Assessed Sex and Gender Information Value Date Recorded Sex Assigned at Not on file Gender Identity Not on file Sexual Orientation Not on file documented as of this encounter Discharge Disposition Disposition Code Departure Means Destination Home or Self [facility] documented in this encounter Plan of Treatment Not on file documented as of this encounter Visit Diagnoses Not on filedocumented in this encounter Care Teams Public Housing Interviewer Relationship Specialty Start Date End Date Jose Alberto Lindo DO [address] [place] [address] [place] [address] PCP - General 05/03/13 07/15/14 documented as of this encounter
--- OUTSIDE RECORDS SUMMARY | 2023-10-24 15:31 | XMS_ITS | Encounter Summary ---
Author Organization [facility] Address [facility] [place] [address] Care Team Providers Care Digital Watch Assembler Name Role Phone Jackson Mark MD Primary Care Provider [phone] Encounter Details Date Type Department Care Team (Latest Contact Info) Description 04/25/2014 10:00 AM EST Ancillary Appointment Vascular Surgery at [facility] [place] [address] Anna Ren, [place] Bilateral lower extremity pain Social History Tobacco Use Types Packs/Day Years [...] Procedure Name Priority Date/Time Associated Diagnosis Comments BEVERLY, LEGS, MULTIPLE LEVELS Routine 04/25/2014 9:34 AM EST Bilateral lower extremity pain documented in this encounter Results * BEVERLY, legs, multiple levels (04/25/2014 9:34 AM EST) VB Text Report Department: Vascular Surgery Lab Patient: [id number] (KURT BOJORQUEZ) CPT Code: 22658 ICD-9: 440.20; 729.5 Referring Physician: LULI LE Indication: ??Patient with bilateral lower extremity pain and numbness R>L, ? PAD ICD9 Diagnosis Code: 440.20 Limb Pain [729.5]. Diabetes Mellitus: No Definitions: ?? BEVERLY = Ankle / Brachial Systolic Pressure Index, TBI = Toe / Brachial Systolic Pressure Index Findings: Right ?Pressure (mm Hg) ?? BEVERLY ??Waveform ? TBI ?? Brachial Artery ?167 ? Common Femoral Artery ?Triphasic ? Pop Fossa ?Biphasic-Re v ? Dorsalis Pedis (Ankle) Artery ?150 ? 0.90 ??Bi-Triphasi c ? Posterior Tibial (Ankle) Artery ??158 ? 0.95 ??Bi-Triphasi c ? Great Toe ?71 ?0.43 ?? Left ? Pressure (mm Hg) ?? BEVERLY ??Waveform ? TBI ?? Brachial Artery ?165 ? Common Femoral Artery ?Triphasic ? Pop Fossa ?Biphasic-Re v ? Dorsalis Pedis (Ankle) Artery ?153 ? 0.92 ??Bi-Triphasi c ? Posterior Tibial (Ankle) Artery ??150 ? 0.90 ??Bi-Triphasi c ? Great Toe ?96 ?0.57 ?? Interpretatio n: RIGHT: Mild lower extremity arterial occlusive disease to the level of the calf. Toe-brachial index (moderate range) lower than ankle-brachia l index indicates presence of arterial occlusive disease in the distal calf and foot. LEFT: Mild lower extremity arterial occlusive disease. Comparison: ??No previous study in our vascular lab database for comparison. Electronicall y Signed by: KIP LOZA on 2014-04-25 02:31:36 PM [facility] VB Text Report End of Report [facility] 04/25/2014 9:34 AM EST Luli Le MD VASCULAR ORDERABLES [facility] documented in this encounter Visit Diagnoses Diagnosis Bilateral lower extremity pain Pain in limb documented in this encounter Care Teams Digital Watch Assembler Relationship Specialty Start Date End Date Jackson Mark MD PCP - General 04/25/14 documented as of this encounter
--- OUTSIDE RECORDS SUMMARY | 2023-10-24 15:31 | XMS_ITS | Encounter Summary ---
Author Organization [facility] Address [address] [place] [address] Care Team Providers Care Orthotic Aide Name Role Phone Unknown, Provider Primary Care Provider [phone] Encounter Details Date Type Department Care Team ([facility] st Contact Info) Description 04/30/2013 Results Only [facility] [phone] Dannie Velazquez MD [address] [place] [phone] Social History Tobacco Use Types Packs/Day Years Used Date Smoking Tobacco: Never Assessed Sex and Gender Information Value Date Recorded Sex Assigned at Not on file Gender Identity Not on file Sexual Orientation Not on file documented as of this encounter Plan of Treatment Not on file documented as of this encounter Procedures Procedure Name Priority Date/Time Associated Diagnosis Comments SURGICAL PATHOLOGY Routine 04/30/2013 8:49 EST documented in this encounter Results * SURGICAL PATHOLOGY (04/30/2013 8:49 EST) Pathology Report: SURGICAL PATHOLOGY REPORT Reports generated via electronic interface contain original data; however they are lacking the format of the original report. Caution should be taken when reading/interpreti ng unformatted reports. Name: ? KURT BOJORQUEZ ? Accession #: ? [id number] ? : ? 1960 (Age: 52) ??M ? Collect Date: ? 04/30/2013 ? Location: ? [facility] ? Receive Date: ? 05/01/2013 ? Provider: DANNIE VELAZQUEZ MD Copy to: ? Final Pathologic Diagnosis: SKIN OF BACK, UPPER MID, SHAVE BIOPSY: - Melanocytic nevus, junctional type, with unusual architectural features and mild cytologic atypia. ??See comment. - Actinic keratosis, incidental. - Solar lentigo. Comment: The biopsy is predominated by features of a solar lentigo. ??Within the solar lentigo is an incidental junctional melanocytic nevus as well as an actinic keratosis. ??(Dr. Goodwin)/[facility] Microscopic Description: The stratum corneum consists of a normal thin layer of basketweave orthokeratin. The epidermis is hyperplastic with elongate, thin, anastomosing rete ridges. Some of the rete are club shaped. ??The keratinocytes have abundant melanin pigment. ??The melanocytes are generally normal in number and distribution. There is prominent solar elastosis in the dermis. ??Focally, there is a junctional melanocytic proliferation arranged predominantly as nests. ??Nests show mild variability in size, shape, and spacing. ??The melanocytes are generally small. ??Further, focally, is parakeratosis with mild basilar atypia at the keratinocytes. Deeper levels have been examined on block (1). ??(Dr. Goodwin)/[facility] Document reviewed and electronically signed by: BRITTON GOODWIN MD Report ??Date: 05/02/2013 13:50 By the signature above, the attending physician certifies that he/she has personally conducted a gross and/or microscopic examination of the described specimens and rendered or confirmed the above diagnosis. Specimen(s) Received: Upper mid back shave biopsy Clinical History: Slightly irreg. brown skin lesion on upper mid back approximately 1.5 cm Gross Description: ? Received in formalin labelled with proper patient identification (initials G, K) and back is a shave biopsy of covarrubias-bojorquez bosselated (1.5 x 0.6 cm). ??Also received is a 0.7 x 0.5 x 0.1 cm irregular covarrubias-white crusted papule. ??Entirely submitted in 1 shave, bisected and 2 papule, bisected. Abigail Enma 05/01/2013 09:29 AM End of Report [facility] 04/30/2013 8:49 EST 05/01/2013 8:49 EST Mederic Russ Velazquez MD PATHOLOGY ORD ERABLES [facility] [address] [place] [address] documented in this encounter Visit Diagnoses Not on filedocumented in this encounter Care Teams Orthotic Aide Relationship Specialty Start Date End Date Unknown, Provider, PCP - General 05/01/13 05/02/13 documented as of this encounter
--- OUTSIDE RECORDS SUMMARY | 2023-10-24 15:31 | XMS_ITS | Encounter Summary ---
Author Organization [facility] Address [address] [place] [address] Care Team Providers Care Assistant Mechanic Name Role Phone Jackson Mark MD Primary Care Provide r Encounter Details Date Type Department Care Team (Late st Contact Info) Description 01/01/2021 Lab Requisition [facility] Pathology & Laboratory Medicine - [facility] [address] [place], [place] [address] Outr Resulting Lab, Provider Social History Tobacco [...] Associated Diagnosis Comments PSA TOTAL, DIAGNOSTIC Routine 12/31/2020 14:40 EDT documented in this encounter Results * PSA TOTAL, DIAGNOSTIC (12/31/2020 14:40 EDT) PSA 3.2 0.0 - 3.5 ng/mL 01/01/2021 19:37 EDT [facility] Blood VENOUS BLOOD / Unknown 12/31/2020 14:40 EDT 01/01/2021 16:52 EDT Narrative [facility] - 01/01/2021 19:37 EDT NOTE: Serum PSA concentration should not be interpreted as absolute evidence for the presence or absence of malignant disease. Assayed on Siemens [employer]aur XPT using chemiluminescent technology.??Values obtained by using different assay methods cannot be used interchangeably. Provider Outr Resulting Lab CHEMISTRY & BLOOD GAS ORDERABLES [facility] [address] [place] [address] documented in this encounter Visit Diagnoses Not on filedocumented in this encounter Care Teams Assistant Mechanic Relationship Specialty Start Date End Date Jackson Mark MD [address] [place] [phone] PCP - General 07/16/14 documented as of this encounter
--- OUTSIDE RECORDS SUMMARY | 2023-10-24 15:31 | XMS_ITS | Encounter Summary ---
Author Organization [facility] Address [facility] [place] [address] Care Team Providers Care Process Safety Specialist Name Role Phone Jackson Mark MD Primary Care Provider [phone] Encounter Details Date Type Department Care Team (Late st Contact Info) Description 01/31/2014 Orders [place] [address] [facility] [place] [address] Social History Tobacco Use Types Packs/Day Years Used Date Smoking Tobacco: Never Assessed Sex and Gender Information Value Date Recorded Sex Assigned at Not on file Gender Identity Not on file Sexual Orientation Not on file documented as of this encounter Plan of Treatment Not on file documented as of this encounter Procedures Procedure Name Priority Date/Time Associated Diagnosis Comments FILM LIBRARY STORAGE ONLY ULTRASOUND STUDY Routine 01/31/2014 1:03 PM EST documented in this encounter Results * Film Library- Storage only Ultrasound Study (01/31/2014 1:03 PM EST) Anatomical Region Laterality Modality Other 01/31/2014 1:03 PM EST Narrative 04/25/2014 1:04 PM EST This is a Non-reportable exam Procedure Note RIVER, UNSIGNED REPORT - 04/25/2014 This is a Non-reportable exam Amaya Faustin MD IMG FILM LIBRARY ORD ERABLES documented in this encounter Visit Diagnoses Not on filedocumented in this encounter Care Teams Process Safety Specialist Relationship Specialty Start Date End Date Jackson Mark MD PCP - General 04/25/14 documented as of this encounter
--- OUTSIDE RECORDS SUMMARY | 2023-10-24 15:31 | XMS_ITS | Encounter Summary ---
Author Organization [facility] Address [address] [place] [address] Care Team Providers Care Rheumatologist Name Role Phone Jose Alberto Lindo DO Primary Care Provider [phone] Encounter Details Date Type Department Care Team (Late st Contact Info) Description 07/12/2014 Results [facility] [phone] Wilder Glass, DO [address] [place] [address] Social History Tobacco Use Types Packs/Day Years Used Date Smoking Tobacco: Never Assessed Sex and Gender Information Value Date Recorded Sex Assigned at Not on file Gender Identity Not on file Sexual Orientation Not on file documented as of this encounter Plan of Treatment Not on file documented as of this encounter Procedures Procedure Name Priority Date/Time Associated Diagnosis Comments SURGICAL PATHOLOGY Routine 07/12/2014 18 :15 EDT documented in this encounter Results * SURGICAL PATHOLOGY (07/12/2014 18:15 EDT) Pathology Report: SURGICAL PATHOLOGY REPORT Reports generated via electronic interface contain original data; however they are lacking the format of the original report. Caution should be taken when reading/interpret ing unformatted reports. Name: ? KURT BOJORQUEZ ? Accession #: ? [id number] ? : ? 1960 (Age: 54) ??M ? Collect Date: ? 07/12/2014 ? Location: ? [facility] ? Receive Date: ? 07/12/2014 ? Provider: WILDER GLASS DO Copy to: DANNIE VELAZQUEZ MD ? Final Pathologic Diagnosis: A. COLON, SIGMOID POLYP(S) AT 40 CM, BIOPSIES: - ??Fragments of tubular adenoma(s). B. COLON, SIGMOID POLYP AT 30 CM, BIOPSY: - ??Tubular adenoma. C. COLON, POLYP(S) AT 20 CM, BIOPSIES: - ??Fragments of tubular adenoma(s). Document reviewed and electronically signed by: KAMLA LOCKWOOD MD Report ??Date: 07/15/2014 13:54 By the signature above, the attending physician certifies that he/she has personally conducted a gross and/or microscopic examination of the described specimens and rendered or confirmed the above diagnosis. Specimen(s) Received: A. ?Sigmoid polyp 40 cm x2 B. ? Sigmoid polyp 30 cm C. ? Polyp 20 cm x2 Clinical History: Screening polyps; clinical diagnosis code: ??V76.51 Gross Description: A. ?Received in formalin labelled with proper patient identification (initials G, K) and sigmoid colon polyp x2, 40 cm are three polypoid fragments of covarrubias tissue (0.4 x 0.3 x 0.2 cm to 0.4 x 0.4 x 0.3). ??The specimen is entirely submitted in A1. B. ?Received in formalin labelled with proper patient identification (initials G, K) and sigmoid polyp, 30 cm is a single polypoid portion of covarrubias tissue (0.5 x 0.4 x 0.4 cm). ??Submitted intact in B1. C. ?Received in formalin labelled with proper patient identification (initials G, K) and polyp 20 cm x 2 are two polypoid portions of mucosa (1.2 x 0.9 x 0.7 cm and 0.8 x 0.6 x 0.5 cm). ??The stalk is each portion is inked black. Each portion is bisected and entirely submitted as follows: BLOCK LERMA C1- ??one polyp, bisected C2- ??one polyp, trisected DrAntoinette ??Ariel 07/13/2014 10:56 AM End of Report [facility] 07/12/2014 18:1 5 EDT 07/12/2014 18:15 EDT Wilder Glass DO PATHOLOGY ORDERABLES [facility] [address] [place] [address] documented in this encounter Visit Diagnoses Not on filedocumented in this encounter Care Teams Rheumatologist Relationship Specialty Start Date End Date Jose Alberto Lindo DO [facility] [place] [address] PCP - General 05/03/13 07/15/14 documented as of this encounter
--- OUTSIDE RECORDS SUMMARY | 2023-10-24 15:31 | XMS_ITS | Clinical Summary ---
Author Organization [facility] Address [address] [place] [address] Care Team Providers Care C Consultant Name Role Phone Jackson Mark MD Primary Care Provide r Encounters Date Type Department Care Team Description 08/05/2023 Lab Requisition [facility] Pathology & Laboratory Medicine - [facility] [address] [place] [address] Emily Laguna, Diverticulosis of large intestine without [...] Orientation Not on file Plan of Treatment Health Maintenance Due Date Last Done Comments Hepatitis C Screen 1961 RSV Immunization ( o r 60+ Years) (1 - 1-dose 60+ series) 2021 COVID-19 Vaccine (24 season) 2022 Procedures Procedure Name Priority Date/Time Associated Diagnosis [...] explore management options, if applicable. 08/09/2023 8:38 [facility] Final Diagnosis A. COLON, 70 CMS, POLYP, BIOPSY: - Colonic mucosa with no significant diagnostic abnormalities. - No definite polyp identified. - Deeper sections x3 examined. B. COLON, 30 CMS, POLYP, BIOPSY: - Colonic mucosa with focal hyperplastic change. - Deeper sections x3 examined. 08/09/2023 8:38 [facility] Attestation By the signature below, the attending physician certifies that they have 1) personally conducted a gross and/or microscopic examination of the described specimen(s), and/or personally interpreted the results of laboratory testing of the described specimen(s), and 2) personally rendered or confirmed the above diagnosis. 08/09/2023 8:38 [facility] at 0838 Clinical History History of colon polyps, diverticula 08/09/2023 8:38 [facility] Gross Description A. Received in [...] B1. MARV ZELAYA(ASCP) 08/08/2023 7:53 08/09/2023 8:38 [facility] Performing Lab [facility] 08/09/2023 8:38 [facility] Scanned Images 08/09/2023 8:38 [facility] Tissue COLON STRUCTURE / Unknown 08/05/2023 10:51 EDT 08/05/2023 18:07 EDT Tissue specimen (specimen) COLON STRUCTURE / Unknown 08/05/2023 10:51 EDT 08/05/2023 18:07 EDT Emily Laguna DO PATHOLOGY ORDERABLES [facility] [address] [place], [place] [address] from Last 3 Months Care Teams C Consultant Relationship Specialty Start Date End Date Jackson Mark MD [address] [place] [address] PCP - General 07/16/14
--- OUTSIDE RECORDS SUMMARY | 2023-10-24 15:31 | XMS_ITS | Clinical Summary ---
Author Organization [facility] Address [facility] [place] [address] Care Team Providers Care Insulation Board Head Saw Operator Name Role Phone Jackson Mark MD Primary Care Provider +1 [phone] Allergies Active Allergy Reactions Criticality Noted Date Comments Amoxicillin Trihydrate Sulfa (Sulfonamide Antibiotics) Medications Medication Sig Dispensed Refills Start Date End Date Status omeprazole (PRILOSEC) 40 mg Capsule, Delayed Release(E.C.) Take 40 mg by mouth daily. Active cyanocobalamin 500 mcg Tablet Take 500 mcg by mouth daily. Active Active Problems Problem Noted Date Diagnosed Date Bilateral leg pain 04/25/2014 Family History [...] on file Sexual Orientation Not on file Last Filed Vital Signs [...] Health Maintenance Due Date Last Done Comments CT Colonography 1960 Colonoscopy 1961 Colorectal Cancer Screening 1960 FIT DNA 1961 FIT 1961 Sigmoidoscopy (10 year) with FIT yearly 1961 Sigmoidoscopy 1960 HIV screen 1979 Hepatitis C Screening 1979 Lipid Screening 1979 Tdap adult 1980 Tetanus vaccine 1980 Zoster vaccine (1 of 2) 2011 Advance Directive 2016 Covid-19 Vaccine (1 - 2022-24 season) 2022 Influenza (Flu) vaccine (1 o f 1 - Influenza standard series) 11/27/2023 Care Teams Insulation Board Head Saw Operator Relationship Specialty Start Date End Date Jackson Mark MD PCP - General 04/25/14
--- OUTSIDE RECORDS SUMMARY | 2023-10-24 15:31 | XMS_ITS | Encounter Summary ---
Author Organization [facility] Address [facility] [place] [address] Care Team Providers Care Manager Ent Name Role Phone Jose Alberto Lindo DO Primary Care Provider +1- [phone] Encounter Details Date Type Department Care Team (Late st Contact Info) Description 04/12/2014 Orders [place] [address] Ivonne Fritz RN Bilateral lower extremity pain Social History Tobacco Use Types Packs/Day Years Used Date Smoking Tobacco: Never Assessed Sex and Gender Information Value Date Recorded Sex Assigned at Not on file Gender Identity Not on file Sexual Orientation Not on file documented as of this encounter Plan of Treatment Not on file documented as of this encounter Results * BEVERLY, legs, multiple levels (04/25/2014 9:34 AM EST) VB Text Report Department: Vascular Surgery Lab Patient: [id number] (KURT BOJORQUEZ) CPT Code: 51232 ICD-9: 440.20; 729.5 Referring Physician: LULI LE [...] limb documented in this encounter Care Teams Manager Ent Relationship Specialty Start Date End Date Jose Alberto Lindo, [address] [place] [address] PCP - General 02/17/10 04/24/14 documented as of this encounter
[2023-10-25 12:14] LABS: Chlamydia Result Negative (Negative); GC Result Negative (Negative)
== END 2023-10-24 15:29 | disposition home or self-care (01) ==
LOC: LBN 15:28
PROVIDERS: PCP Family Medicine; Visit Provider Nurse Practitioner Family
DX: Z20.2 Contact with and (suspected) exposure to infections with a predominantly sexual mode of transmission (principal)
CPT/HCPCS: 87491; 87591

== ENCOUNTER 2023-11-02 19:21 | Emergency (ER) | payer BC, SELFPAY ==
[2023-11-02] VITALS (16 sets, daily range): BP systolic 135–177; BP diastolic 62–95; PULSE 89–109; RESP 14–26; TEMP 36.5; O2SAT 94–98
--- OUTSIDE RECORDS SUMMARY | 2023-11-02 19:40 | XMS_ITS | Encounter Summary ---
Author Organization [facility] Address [facility] [place] [address] Care Team Providers Care Upkeep Mechanic Name Role Phone Jackson Mark MD Primary Care Provider +1 [phone] Encounter Details Date Type Department Care Team (Late st Contact Info) Description 01/31/2014 Orders [place] [address] Amaya Faustin MD [facility] [place] [address] Social History Tobacco Use Types Packs/Day Years [...] on filedocumented in this encounter Care Teams Upkeep Mechanic Relationship Specialty Start Date End Date Jackson Mark MD PCP - General 04/25/14 documented as of this encounter
--- OUTSIDE RECORDS SUMMARY | 2023-11-02 19:40 | XMS_ITS | Encounter Summary ---
Author Organization [facility] Address [address] [place] [address] Care Team Providers Care Glass Novelty Maker Name Role Phone Jose Alberto Lindo DO Primary Care Provider +1- [phone] Encounter Details Date Type Department Care Team (Late st Contact Info) Description 07/12/2014 Results Only [facility] [phone] Wilder Glass, DO [address] [place] [address] Social History Tobacco Use Types [...] ? KURT BOJORQUEZ ? Accession #: ? [id number] ? : ? 1960 (Age: 54) ??M [...] ??Ariel 07/13/2014 10:56 AM End of Report [facility] 07/12/2014 18:1 5 EDT 07/12/2014 18:15 EDT Wilder Glass DO PATHOLOGY ORDERABLES [facility] [address] [place] [address] documented in this encounter Visit Diagnoses Not on filedocumented in this encounter Care Teams Glass Novelty Maker Relationship Specialty Start Date End Date Jose Alberto Lindo DO [facility] [place] [address] PCP - General 05/03/13 07/15/14 documented as of this encounter
--- OUTSIDE RECORDS SUMMARY | 2023-11-02 19:40 | XMS_ITS | Encounter Summary ---
Author Organization [facility] Address [address] [place] [address] Care Team Providers Care Certified Anesthesiologist Assistant Name Role Phone Jackson Mark MD Primary Care Provide r Encounter Details Date Type Department Care Team (Late st Contact Info) Description 08/05/2023 Lab Requisition [facility] Pathology & Laboratory Medicine - [facility] [address] [place] [address] Emily Laguna, DO [address] [place], [place] [address] Diverticulosis of large intestine without perforation or [...] explore management options, if applicable. 08/09/2023 8:38 [facility] Final Diagnosis A. COLON, 70 CMS, POLYP, BIOPSY: - Colonic mucosa with no significant diagnostic abnormalities. - No definite polyp identified. - Deeper sections x3 examined. B. COLON, 30 CMS, POLYP, BIOPSY: - Colonic mucosa with focal hyperplastic change. - Deeper sections x3 examined. 08/09/2023 8:38 [facility] Attestation By the signature below, the attending physician certifies that they have 1) personally conducted a gross and/or microscopic examination of the described specimen(s), and/or personally interpreted the results of laboratory testing of the described specimen(s), and 2) personally rendered or confirmed the above diagnosis. 08/09/2023 8:38 [facility] at 0838 Clinical History History of colon polyps, diverticula 08/09/2023 8:38 [facility] Gross Description A. Received in [...] B1. MARV ZELAYA(ASCP) 08/08/2023 7:53 08/09/2023 8:38 [facility] Performing Lab [facility] 08/09/2023 8:38 [facility] Scanned Images 08/09/2023 8:38 [facility] Tissue COLON STRUCTURE / Unknown 08/05/2023 10:51 EDT 08/05/2023 18:07 EDT Tissue specimen (specimen) COLON STRUCTURE / Unknown 08/05/2023 10:51 EDT 08/05/2023 18:07 EDT Emily Laguna DO PATHOLOGY ORDERABLES [facility] [address] [place] [address] documented in this encounter Visit Diagnoses Diagnosis Diverticulosis of large intestine without perforation or abscess without bleeding Diverticulosis of colon (without mention of hemorrhage) Family history of malignant neoplasm of digestive organs Benign neoplasm of colon, unspecified documented in this encounter Care Teams Certified Anesthesiologist Assistant Relationship Specialty Start Date End Date Jackson Mark MD [address] [place] [phone] PCP - General 07/16/14 documented as of this encounter
--- OUTSIDE RECORDS SUMMARY | 2023-11-02 19:40 | XMS_ITS | Encounter Summary ---
Author Organization Health system Address [address] [place] [address] Care Team Providers Care Filter Tender Name Role Phone Jackson Mark MD Primary Care Provide r Encounter Details Date Type Department Care Team (Late st Contact Info) Description 07/18/2023 Lab Requisition [facility] Pathology & Laboratory Medicine - [facility] [address] [place], [place] [address] Outr Resulting Lab, Provider Social History Tobacco [...] PSA 3.5 <=4.5 ng/mL 07/18/2023 22:57 EDT [facility] Blood VENOUS BLOOD / Unknown 07/18/2023 13:35 EDT 07/18/2023 21:45 EDT Narrative [facility] - 07/18/2023 22:57 EDT NOTE: Serum PSA concentration should not be interpreted as absolute evidence for the presence or absence of malignant disease. Assayed on Siemens Right90IA Navitaaur XPT using chemiluminescent technology.??Values obtained by using different assay methods cannot be used interchangeably. Provider Outr Resulting Lab CHEMISTRY & BLOOD GAS ORDERABLES [facility] [address] [place] [address] documented in this encounter Visit Diagnoses Not on filedocumented in this encounter Care Teams Filter Tender Relationship Specialty Start Date End Date Jackson Mark MD [address] [place] [phone] PCP - General 07/16/14 documented as of this encounter
--- OUTSIDE RECORDS SUMMARY | 2023-11-02 19:40 | XMS_ITS | Encounter Summary ---
Author Organization [facility] Address [address] [place] [address] Care Team Providers Care Fishing Boat Captain Name Role Phone Jose Alberto Lindo DO Primary Care Provider +1- [phone] Encounter Details Date Type Department Care Team (Latest Contact Info) Description 07/12/2014 8:13 EDT - 07/12/2014 23:59 EDT Hospital Encounter [address] [address] Unknown, Provider, Discharge Disposition: Home or Self Care Social History Tobacco Use Types Packs/Day Years Used Date Smoking Tobacco: Never Assessed Sex and Gender Information Value Date Recorded Sex Assigned at Not on file Gender Identity Not on file Sexual Orientation Not on file documented as of this encounter Discharge Disposition Disposition Code Departure Means Destination Home or Self Intermediate documented in this encounter Plan of Treatment Not on file documented as of this encounter Visit Diagnoses Not on filedocumented in this encounter Care Teams Fishing Boat Captain Relationship Specialty Start Date End Date Jose Alberto Lindo DO [address] [place] [address] [place] [address] PCP - General 05/03/13 07/15/14 documented as of this encounter
--- OUTSIDE RECORDS SUMMARY | 2023-11-02 19:40 | XMS_ITS | Referral Summary ---
Author Organization [facility] Address [address] [place] [address] Care Team Providers Care Supervisor Fruit Grading Name Role Phone Jackson Mark MD Primary Care Provide r Encounters Date Type Department Care Team Description 10/24/2023 Lab Requisition [facility] Pathology & Laboratory [address] [address] Outr Resulting Lab, Provider 08/05/2023 Lab Requisition [facility] Pathology & Laboratory [address] [address] Emily Laguna, Diverticulosis of large intestine without [...] Procedure Name Priority Date/Time Associated Diagnosis Comments CHLAMYDIA/N. GONORRHOEAE AMPLIFIED NUCLEIC ACID Routine 10/24/2023 11:10 EDT SURGICAL PATHOLOGY Today 08/05/2023 10 :51 EDT Diverticulosis of large intestine without perforation or abscess without bleeding Family history of malignant neoplasm of digestive organs Benign neoplasm of colon, unspecified from Last 3 Months Results * CHLAMYDIA/N. GONORRHOEAE AMPLIFIED NUCLEIC ACID (10/24/2023 11:10 EDT) Neisseria gonorrhoeae Result Negative Negative 10/25/2023 12:09 EDT [facility] Chlamydia trachomatis Result Negative Negative 10/25/2023 12:09 T [facility] Urine URINE / Unknown 10/24/2023 1 1:10 EDT 10/24/2023 22:10 EDT Provider Outr Resulting Lab MICROBIOLOGY - GENERAL ORDERABLES [facility] [address] [place] [id number] * SURGICAL PATHOLOGY (08/05/2023 10:51 EDT) Note to Patient The following pathology results have been interpreted by your pathologist and may be available to you before your health provider has had the opportunity to review them. Please allow time for your provider to receive these results and explore management options, if applicable. 08/09/2023 8:38 [facility] Final Diagnosis A. [...] B1. MARV ZELAYA(ASCP) 08/08/2023 7:53 08/09/2023 8:38 EDT [facility] Performing Lab [facility] 08/09/2023 8:38 EDT [facility] Scanned Images 08/09/2023 8:38 EDT [facility] Tissue COLON STRUCTURE / Unknown 08/05/2023 10:51 EDT 08/05/2023 18:07 EDT Tissue specimen (specimen) COLON STRUCTURE / Unknown 08/05/2023 10:51 EDT 08/05/2023 18:07 EDT Emily Laguna DO PATHOLOGY ORDERABLES [facility] [address] [place] [address] from Last 3 Months Care Teams Supervisor Fruit Grading Relationship Specialty Start Date End Date Jackson Mark MD [address] [place] [address] PCP - General 07/16/14
--- OUTSIDE RECORDS SUMMARY | 2023-11-02 19:40 | XMS_ITS | Encounter Summary ---
Author Organization [facility] Address [address] [place] [address] Care Team Providers Care Grove Worker Name Role Phone Jackson Mark MD Primary Care Provide r Encounter Details Date Type Department Care Team (Late st Contact Info) Description 10/15/2021 Lab Requisition [facility] Pathology & Laboratory Medicine - [facility] [address] [place], [place] [address] Outr Resulting Lab, Provider Social History Tobacco [...] PSA 2.0 <=4.5 ng/mL 10/15/2021 22:36 EDT [facility] Blood VENOUS BLOOD / Unknown 10/15/2021 14:55 EDT 10/15/2021 21:24 EDT Narrative [facility] - 10/15/2021 22:36 EDT NOTE: Serum PSA concentration should not be interpreted as absolute evidence for the presence or absence of malignant disease. Assayed on Siemens MD-ITIA [employer]aur XPT using chemiluminescent technology.??Values obtained by using different assay methods cannot be used interchangeably. Provider Outr Resulting Lab CHEMISTRY & BLOOD GAS ORDERABLES [facility] [address] [place] [address] documented in this encounter Visit Diagnoses Not on filedocumented in this encounter Care Teams Grove Worker Relationship Specialty Start Date End Date Jackson Mark MD [address] [place] [phone] PCP - General 07/16/14 documented as of this encounter
--- OUTSIDE RECORDS SUMMARY | 2023-11-02 19:40 | XMS_ITS | Encounter Summary ---
Author Organization [facility] Address [facility] [place] [address] Care Team Providers Care Etiologist Name Role Phone Jose Alberto Lindo DO Primary Care Provider +1- [phone] Encounter Details Date Type Department Care Team (Late st Contact Info) Description 04/12/2014 Orders [place] [address] Ivonne Fritz RN Bilateral lower extremity pain [...] Text Report Department: Vascular Surgery Lab Patient: [id number] (KURT BOJORQUEZ) CPT Code: 90027 ICD-9: 440.20; 729.5 Referring Physician: LULI LE [...] limb documented in this encounter Care Teams Etiologist Relationship Specialty Start Date End Date Jose Alberto Lindo, [address] [place] [address] PCP - General 02/17/10 04/24/14 documented as of this encounter
--- OUTSIDE RECORDS SUMMARY | 2023-11-02 19:40 | XMS_ITS | Clinical Summary ---
Author Organization [facility] Address [address] [place] [address] Care Team Providers Care Bead Wire Taper Name Role Phone Jackson Mark MD Primary Care Provide r Encounters Date Type Department Care Team Description 10/24/2023 Lab Requisition [facility] Pathology & Laboratory Medicine [address] [address] Outr Resulting Lab, Provider 08/05/2023 Lab Requisition [facility] Pathology & Laboratory [address] [address] Emily Laguna, Diverticulosis of large intestine without [...] - 1-dose 60+ series) 2021 COVID-19 Vaccine ( season) 2022 Procedures Procedure Name Priority Date/Time [...] gonorrhoeae Result Negative Negative 10/25/2023 12:09 EDT [facility] Chlamydia trachomatis Result Negative Negative 10/25/2023 12:09 EDT [facility] Urine URINE / Unknown 10/24/2023 1 1:10 EDT 10/24/2023 22:10 EDT Provider Outr Resulting Lab MICROBIOLOGY - GENERAL ORDERABLES [facility] [address] [place] [id number] * SURGICAL PATHOLOGY (08/05/2023 10:51 EDT) Note to Patient The following pathology results have been interpreted by your pathologist and may be available to you before your health provider has had the opportunity to review them. Please allow time for your provider to receive these results and explore management options, if applicable. 08/09/2023 8:38 [facility] Final Diagnosis A. COLON, 70 CMS, POLYP, BIOPSY: - Colonic mucosa with no significant diagnostic abnormalities. - No definite polyp identified. - Deeper sections x3 examined. B. COLON, 30 CMS, POLYP, BIOPSY: - Colonic mucosa with focal hyperplastic change. - Deeper sections x3 examined. 08/09/2023 8:38 [facility] Attestation By the signature below, the attending physician certifies that they have 1) personally conducted a gross and/or microscopic examination of the described specimen(s), and/or personally interpreted the results of laboratory testing of the described specimen(s), and 2) personally rendered or confirmed the above diagnosis. 08/09/2023 8:38 [facility] at 0838 Clinical History History of colon polyps, diverticula 08/09/2023 8:38 [facility] Gross Description A. Received [...] MARV ZELAYA(ASCP) 08/08/2023 7:53 08/09/2023 8:38 EDT [facility] Performing Lab [facility] 08/09/2023 8:38 EDT [facility] Scanned Images 08/09/2023 8:38 EDT [facility] Tissue COLON STRUCTURE / Unknown 08/05/2023 10:51 EDT 08/05/2023 18:07 EDT Tissue specimen (specimen) COLON STRUCTURE / Unknown 08/05/2023 10:51 EDT 08/05/2023 18:07 EDT Emily Laguna DO PATHOLOGY ORDERABLES [facility] [address] [place] [address] from Last 3 Months Care Teams Bead Wire Taper Relationship Specialty Start Date End Date Jackson Mark MD [address] [place] [phone] PCP - General 07/16/14
--- OUTSIDE RECORDS SUMMARY | 2023-11-02 19:40 | XMS_ITS | Encounter Summary ---
Author Organization [facility] Address [facility] [place] [address] Care Team Providers Care Lard Mixer Name Role Phone Dannie Velazquez MD Primary Care Provider +1 [phone] Reason for Visit * Reason Comments Establish Care B leg pain Encounter Details Date Type Department Care Team (Late st Contact Info) Description 04/25/2014 10:30 AM EST Office [place] [address] Amaya Faustin MD [facility] [place] [place] [address] PVD (peripheral vascular disease) with claudication Discharge [...] a 53 y.o. male who presents to [facility] vascular clinic with pain in both legs. [...] Other Vascular Risk Factors: (no) CAD: Previous MD, angina (no) CHF (no) Arrhythmia (no) COPD [...] unspecified documented in this encounter Care Teams Lard Mixer Relationship Specialty Start Date End Date Dannie Velazquez MD PCP - General 04/25/14 documented as of this encounter
--- OUTSIDE RECORDS SUMMARY | 2023-11-02 19:40 | XMS_ITS | Encounter Summary ---
Author Organization [facility] Address [facility] [place] [address] Care Team Providers Care Blender Machine Operator Name Role Phone Jackson Mark MD Primary Care Provider +1 [phone] Encounter Details Date Type Department Care Team (Latest Contact Info) Description 04/25/2014 10:00 AM EST Ancillary Appointment [facility] Surgery at [facility] [address] Anna Ren, [place] Bilateral lower extremity pain [...] Text Report Department: Vascular Surgery Lab Patient: [id number] (KURT BOJORQUEZ) CPT Code: 99224 ICD-9: 440.20; 729.5 Referring Physician: LULI LE Indication: ??Patient with bilateral lower extremity pain and numbness R>L, ? PAD ICD9 Diagnosis Code: 440.20 Limb Pain [729.5]. Diabetes Mellitus: No Definitions: ?? BEVERLY = Ankle / Brachial Systolic Pressure Index, TBI = Toe / Brachial Systolic Pressure Index Findings: Right ?Pressure (mm Hg) ?? BEEVRLY ??Waveform ? TBI ?? Brachial Artery ?167 [...] limb documented in this encounter Care Teams Blender Machine Operator Relationship Specialty Start Date End Date Jackson Mark MD PCP - General 04/25/14 documented as of this encounter
--- OUTSIDE RECORDS SUMMARY | 2023-11-02 19:40 | XMS_ITS | Encounter Summary ---
Author Organization [facility] Address [address] [place] [address] Care Team Providers Care Manager Human Resources Name Role Phone Jackson Mark MD Primary Care Provide r Encounter Details Date Type Department Care Team (Late st Contact Info) Description 01/01/2021 Lab Requisition [facility] Pathology & Laboratory Medicine - [facility] [address] [place], [place] [id number] Outr Resulting Lab, Provider Social History Tobacco [...] 0.0 - 3.5 ng/mL 01/01/2021 19:37 EDT [facility] Blood VENOUS BLOOD / Unknown 12/31/2020 14:40 EDT 01/01/2021 16:52 EDT Narrative [facility] - 01/01/2021 19:37 EDT NOTE: Serum PSA concentration should not be interpreted as absolute evidence for the presence or absence of malignant disease. Assayed on Siemens ADVIA FullStoryaur XPT using chemiluminescent technology.??Values obtained by using different assay methods cannot be used interchangeably. Provider Outr Resulting Lab CHEMISTRY & BLOOD GAS ORDERABLES [facility] [address] [place] [address] documented in this encounter Visit Diagnoses Not on filedocumented in this encounter Care Teams Manager Human Resources Relationship Specialty Start Date End Date Jackson Mark MD [address] [place] [phone] PCP - General 07/16/14 documented as of this encounter
--- OUTSIDE RECORDS SUMMARY | 2023-11-02 19:40 | XMS_ITS | Encounter Summary ---
Author Organization [facility] Address [address] [place] [address] Care Team Providers Care Obgyn Specialist Name Role Phone Jackson Mark MD Primary Care Provide r Encounter Details Date Type Department Care Team (Late st Contact Info) Description 10/24/2023 Lab Requisition [facility] Pathology & Laboratory Medicine - [address] [id number] Outr Resulting Lab, Provider Social History Tobacco [...] AMPLIFIED NUCLEIC ACID Routine 10/24/2023 11:10 EDT documented in this encounter Results * CHLAMYDIA/N. GONORRHOEAE AMPLIFIED NUCLEIC ACID (10/24/2023 11:10 EDT) Neisseria gonorrhoeae Result Negative Negative 10/25/2023 12:09 EDT [facility] Chlamydia trachomatis Result Negative Negative 10/25/2023 12:09 EDT [facility] Urine URINE / Unknown 10/24/2023 1 1:10 EDT 10/24/2023 22:10 EDT Provider Outr Resulting Lab MICROBIOLOGY - GENERAL ORDERABLES [facility] [address] [place] [address] documented in this encounter Visit Diagnoses Not on filedocumented in this encounter Care Teams Obgyn Specialist Relationship Specialty Start Date End Date Jackson Mark MD [address] [place] [phone] PCP - General 07/16/14 documented as of this encounter
--- OUTSIDE RECORDS SUMMARY | 2023-11-02 19:40 | XMS_ITS | Encounter Summary ---
Author Organization [facility] Address [address] [place] [address] Care Team Providers Care Assistant Golf Course Superintendent Name Role Phone Unknown, Provider Primary Care Provider [phone] Encounter Details Date Type Department Care Team ([facility] st Contact Info) Description 04/30/2013 Results Only [facility] [phone] Dannie Velazquez MD [address] [place] [phone] Social History Tobacco Use Types Packs/Day [...] ? KURT BOJORQUEZ ? Accession #: ? [id number] ? : ? 1960 (Age: 52) ??M [...] as well as an actinic keratosis. ??(Dr. Goodwin)/[facility] Microscopic Description: The stratum corneum consists of [...] have been examined on block (1). ??(Dr. Goodwin)/[facility] Document reviewed and electronically signed by: BRITTON [...] PATHOLOGY ORD ERABLES [facility] [address] [place] [address] documented in this encounter Visit Diagnoses Not on filedocumented in this encounter Care Teams Assistant Golf Course Superintendent Relationship Specialty Start Date End Date Unknown, Provider, PCP - General 05/01/13 05/02/13 documented as of this encounter
--- OUTSIDE RECORDS SUMMARY | 2023-11-02 19:40 | XMS_ITS | Encounter Summary ---
Author Organization [facility] Address [address] [place] [address] Care Team Providers Care Quality Assurance Auditor Name Role Phone Unavailable Primary Care Provider Unavailabl e Encounter Details Date Type Department Care Team (Latest Contact Info) Description 04/30/2013 7:53 EST - 04/30/2013 23:59 EST Hospital Encounter [address] [address] Unknown, Provider, Discharge Disposition: Home or Self Care Social History Tobacco Use Types Packs/Day Years Used Date Smoking Tobacco: Never Assessed Sex and Gender Information Value Date Recorded Sex Assigned at Not on file Gender Identity Not on file Sexual Orientation Not on file documented as of this encounter Discharge Disposition Disposition Code Departure Means Destination Home or Self [facility] documented in this encounter Plan of Treatment Not on file documented as of this encounter Visit Diagnoses Not on filedocumented in this encounter
--- OUTSIDE RECORDS SUMMARY | 2023-11-02 19:40 | XMS_ITS | Clinical Summary ---
Author Organization [facility] Address [facility] [place] [address] Care Team Providers Care Breeder Service Technician Name Role Phone Jackson Mark MD Primary Care Provider [phone] Allergies Active Allergy Reactions Criticality Noted Date [...] - Influenza standard series) 11/27/2023 Care Teams Breeder Service Technician Relationship Specialty Start Date End Date Jackson Mark MD PCP - General 04/25/14
--- NOTE | 2023-11-02 19:45 | DI.RAD_ITS ---
Exam(s) XR SHOULDER LT COMPLETE 2+V EXAM: XR SHOULDER LT COMPLETE 2+V CLINICAL HISTORY: fall pain. TECHNIQUE: 2D digital imaging was performed. COMPARISON: No exams were available for comparison FINDINGS: 3 views No evidence of fracture or dislocation of the level of glenohumeral joint. However, there is an obli que fracture at the junction of the mid and lateral thirds of the left clavicle. No distraction of t he AC joint. Chromium appears unremarkable. IMPRESSION: Left clavicle fracture. DATA REPOSITORY: RADIATION DOSE DELIVERED:
--- NOTE | 2023-11-02 19:58 | ED.GENADUL_ITS ---
Discharge Plan Disposition Patient Disposition: Home Condition: Improving Discharge Details Chief Complaint: Trauma Clinical Impression: Clavicle fracture Primary Care Provider: Jeffrey Cheng ED Provider: Kevin Patton Home Meds and New Rx's Prescriptions: No Action (DME) Aerochamber MV Spacer See Rx Instructions .Route Qty: 1 0RF Rx Instructions: As directed lisinopril 5 mg tablet 5 mg PO DAILY Qty: 90 3RF omeprazole 40 mg capsule,delayed release(DR/EC) 40 mg PO DAILY Qty: 90 3RF tamsulosin 0.4 mg capsule 0.4 mg PO DAILY Qty: 90 4RF finasteride 5 mg tablet 5 mg PO DAILY Qty: 90 4RF Discharge Instructions Instructions: Clavicle fracture Additional Instructions: Please use sling as instructed. Please follow-up with orthopedic team. Return to the Emergency Department for any worsening symptoms HPI General Date/Time Provider Initiated Documentation: 11/02/23 19:28 . HPI Narrative: 63-year-old male drinking this evening slipped and tumbled down into a ditch hitting his left shoulder and his head, no loss of consciousness, abrasion to scalp and right bhatia, pain to left shoulder. Patient denies chest or abdominal discomfort. Related Data Home Medications ?Medication ?Instructions ?Recorded ?Confirmed inhalational spacing device #1 ea 09/23/22 11/02/23 (Aerochamber MV spacer) lisinopril 5 mg tablet 5 mg PO DAILY #90 tab-caps 02/24/23 11/02/23 omeprazole 40 mg capsule,delayed 40 mg PO DAILY #90 tab-caps 02/24/23 11/02/23 release finasteride 5 mg tablet 5 mg PO DAILY prostate #90 tabs 10/10/23 11/02/23 tamsulosin 0.4 mg capsule 0.4 mg PO DAILY urination #90 caps 10/10/23 11/02/23 Previous Rx's ?Medication ?Instructions ?Recorded inhalational spacing device #1 ea 09/23/22 (Aerochamber MV spacer) lisinopril 5 mg tablet 5 mg PO DAILY #90 tab-caps 02/24/23 omeprazole 40 mg capsule,delayed 40 mg PO DAILY #90 tab-caps 02/24/23 release finasteride 5 mg tablet 5 mg PO DAILY prostate #90 tabs 10/10/23 tamsulosin 0.4 mg capsule 0.4 mg PO DAILY urination #90 caps 10/10/23 Allergies Allergy/AdvReac Type Severity Reaction Status Date / Time Penicillins Allergy Severe Anaphylaxsi Verified 11/02/23 19:32 s Sulfa (Sulfonamide Allergy Severe Skin Rash Verified 11/02/23 19:32 Antibiotics) cyanocobalamin (vitamin B12) AdvReac Unknown Diarrhea/GI Verified 11/02/23 19:32 General Stated Complaint: Trauma LELAND: 3 Exam Narrative Exam Narrative: Alert interactive Moist mucous membrane swelling secretions normal voice Patient in c-collar, midline cervical tenderness without step-off crepitus or deformity Lungs clear bilaterally no wheezes rales or rhonchi Normal heart sounds no murmurs rubs or gallops Abdomen soft nontender nondistended Pelvis stable, moving all extremities, superficial contusion/abrasion to right bhatia hemostatic no foreign body, soft compartments warm well-perfused No midline thoracic or lumbar spinal tenderness step-off crepitus or deformity Alert moving all extremities without deficits Course Vital Signs Vital signs: Vital Signs Temperature 36.5 C 11/02/23 19:25 Pulse 109 H 11/02/23 19:25 Respiratory Rate 14 11/02/23 19:25 Blood Pressure 150/95 H 11/02/23 19:25 Pulse Oximetry 94 11/02/23 19:25 Temperature 36.5 C 11/02/23 19:25 Temperature Source Skin 11/02/23 19:25 Pulse 109 H 11/02/23 19:25 Respiratory Rate 14 11/02/23 19:25 Blood Pressure 150/95 H 11/02/23 19:25 Blood Pressure Position Sitting 11/02/23 19:25 Pulse Oximetry 94 11/02/23 19:25 Oxygen Delivery Method Room Air 11/02/23 19:25 Oxygen Flow Rate 0 11/02/23 19:25 Pain Level 9 11/02/23 19:25 Medical Decision Making 63-year-old intoxicated male presents after stumbling and rolling down a ditch, pain to left shoulder occipital scalp and right bhatia, no chest pain or abdominal pain, airway breathing and circulation intact, patient in c-collar, there are extremities without deficits, no focal neurologic deficits, no to be tachycardic and hypertensive arrival likely related to discomfort. Wounds clean noncontaminated no foreign bodies superficial in nature. Will administer Tdap, will obtain CT head CT C-spine x-ray shoulder and x-ray bhatia. Likely simple contusions lower suspicion for intracranial hemorrhage spinal cord fracture dislocation of shoulder or fracture of collarbone low suspicion for tib-fib fracture. Patient's pain is well-controlled. Remained stable disposition pending results and reassessment 21: 21 resting really no acute distress hemodynamically stable alert oriented interactive without deficits. CT head and C-spine unremarkable. C-collar to be removed. Evidence of left clavicular fracture. Neurovascular exam of limb intact. Will place in sling will give close orthopedic follow-up. Home care instructions and return precautions to be given Quality:SDOH Health Related Social Needs: No Data to Display PFSH All Active Problems (Updated 11/02/23 @ 21:22 by Kevin Patton MD) Clavicle fracture (Acute) Diverticula of colon (Acute) Emphysema lung (Acute) COPD (chronic obstructive pulmonary disease) (Chronic) Atherosclerosis of aorta (Acute) Acute sinusitis (Acute) Sensorineural hearing loss of left ear (Acute) Mixed conductive and sensorineural hearing loss of right ear with restricted hearing of left ear (Acute) Chronic serous otitis media, right ear (Acute) Rising PSA level (Acute) Depression (Chronic) Abdominal pain (Acute) Annual physical exam (Acute) Family history of colon cancer (Chronic) History of adenomatous polyp of colon (Chronic) Review patient history, and agree with plan by Otcavia Carlos PA-C Tubular adenoma (Acute 07/19/14) 07/12/14-DR. BLACK recommends 3 year repeat Tobacco use disorder (Acute) Pneumonia, organism unspecified (Acute) Hypertension (Acute 11/27/14) Hearing loss (Acute 02/24/86) A.S. Family hx of prostate cancer (Acute) Blindness of one eye (Acute 02/24/86) Medical History (Updated 11/02/23 @ 21:22 by Kevin Patton MD) Hyperplastic colon polyp (~07/2023) Abnormal colonoscopy (07/12/14) 07/12/14, Dr Black tubular adenoma Family history of prostate cancer Hearing loss Blindness of one eye (L) Pneumonia Tobacco use disorder Surgical History (Updated 08/09/23 @ 14:56 by Laurel Chua) H/O colonoscopy (~07/2023) Dr Black, negative, rec repeat 5 years Family History Mother , 80's Essential hypertension COPD (chronic obstructive pulmonary disease) Depression Heart disease Hyperlipidemia Neoplasm Asthma Father , 70's Diabetes Essential hypertension Heart disease Hyperlipidemia Neoplasm PROSTATE Brother Essential hypertension Depression Neoplasm Alcohol abuse Heart disease Hypertension Sister Essential hypertension Depression Neoplasm Colon cancer Alcohol abuse Hypertension Grandfather Neoplasm Grandmother Essential hypertension Heart disease Brother Colon cancer Diabetes Hypertension Sister Hypertension Social History (Updated 03/01/23 @ 13:57 by Odalis Wasserman) Smoking/Tobacco Use Status: Current every day Tobacco Type: cigarettes Tobacco: How many years used: 48 Smokeless tobacco user: other (Cigarettes) Quit status: considering quitting Second Hand Exposure: Yes Smoking risk assessment performed?: Yes Alcohol Intake: current Alcohol Intake frequency: a few times a week Alcohol type: beer Drug use: Occasionally Substance use type: marijuana and sedatives Adopted: No Household members: none Housing: house Communication Needs: Hard of Hearing Education Level: high school Do you need help understanding health information?: Rarely current occupation: [employer] Pets and animals: Yes Pets and animals: dog(s) Sexually active: No Do you think of yourself as: lesbian/ford/homosexual Current gender identity: male What is your relationship status?: How often do you talk on the phone with friends or family?: three or more times per week How often do you get together with friends or relatives?: once per week How often do you attend confucianism or bahai services?: decline to answer Do you belong to any clubs or organized social groups?: no Panel score (0-1 are the most socially isolated patients): 1 What type of physical activity do you participate in: none and other Details: working Duration: 45-60 minutes/day Frequency: daily Amena/Yazdanism: None Special amena needs: No Agree to transfusion: Yes Seatbelt use: always Helmet use: Yes Helmet use: always Drive intox or ride w/intox public transit bus driver: No Working smoke detector in home: Yes Carbon monox detector in home: Yes Firearms in home: Yes Firearms unloaded and locked: Yes Do you feel safe at home: Yes Do you feel safe in your relationship?: Yes Victim of physical abuse: No Victim of emotional abuse: No Victim of sexual abuse: No
--- NOTE | 2023-11-02 20:30 | DI.CT_ITS ---
Exam(s) CT HEAD CERVICAL SPINE WO EXAM: CT HEAD CERVICAL SPINE WO CLINICAL HISTORY: fall occipital contusion, midline neck pain. TECHNIQUE: Imaging Protocol: Axial computed tomography images with coronal and sagittal reformatted images were created and reviewed COMPARISON: No exams were available for comparison FINDINGS: BRAIN: There are no skull fractures nor fluid in the visualized paranasal sinuses. There is no evidence of intracranial hemorrhage, mass effect, or shift of midline structures. There are no extra-axial fluid collections. The ventricles are not enlarged or shifted and there is no blo od within the ventricular system nor within the basal cisterns. There is a moderate amount of bilateral periventricular see hypodensity consistent with chronic small vessel disease. CERVICAL SPINE: There is no evidence of fracture nor listhesis. No significant prevertebral soft tissue swelling. Chronic disc space narrowing at C5-6 noted. Also C6-7. Degenerative changes are noted in the facet joints, most prominent at left side C3-4. There is no significant facet joint malalignment. No significant osseous lesions evident. IMPRESSION: No acute intracranial findings on this noninfused CT scan of the brain.Chronic small-vessel white mat ter ischemic changes noted. No evidence of cervical spine fracture, malalignment, nor acute compromise of the cervical spinal can al. Degenerative changes evident. RADIATION DOSE DELIVERED: Total DLP DATA REPOSITORY: All CT scans at this facility are submitted to the National Radiology Data Registry (NRDR) Dose Index Registry (DIR) with the [employer] (ACR). RADIATION OPTIMIZATION: All CT scans at this facility use at least one of these dose optimization te chniques: automated exposure control; mA and/or kV adjustment per patient size (includes targeted exa ms where dose is matched to clinical indication); or iterative reconstruction.
--- NOTE | 2023-11-02 21:00 | DI.VRAD_ITS ---
PROCEDURE INFORMATION: Exam: CT Head Without Contrast Exam date and time: 11/02/2023 8:12 PM Age: 63 years old Clinical indication: Fall occipital contusion, midline neck pain TECHNIQUE: Imaging protocol: Computed tomography of the head without contrast. COMPARISON: No relevant prior studies available. FINDINGS: Brain: There is no acute intracranial hemorrhage, mass effect or midline shift. No large acute territorial infarct identified. There are patchy regions of hypodensity in the periventricular and subcortical white matter, likely on the basis of chronic microvascular ischemic disease. There is a region of encephalomalacia in the right occipital lobe, likely from remote infarct. Cerebral ventricles: The ventricles and sulci are prominent in size, which is at least in part due to global cerebral volume loss. Paranasal sinuses: Visualized sinuses are unremarkable. No fluid levels. Mastoid air cells: Trace fluid seen in the right mastoid air cells. Bones: Unremarkable. No acute fracture. Soft tissues: Unremarkable. IMPRESSION: No acute intracranial hemorrhage, mass effect or midline shift. PROCEDURE INFORMATION: Exam: CT Cervical Spine Without Contrast Exam date and time: 11/02/2023 8:12 PM Age: 63 years old Clinical indication: Fall occipital contusion, midline neck pain TECHNIQUE: Imaging protocol: Computed tomography of the cervical spine without contrast. COMPARISON: CT CHEST - LUNG CANCER SCREENING 11/24/2017 12:47 PM FINDINGS: Bones: No acute fracture. There is grade 1 anterolisthesis of C2 on C3. There is straightening of the cervical lordosis, possibly secondary to neck spasm. There is multilevel degenerative disc disease and bilateral uncovertebral and facet arthropathy causing bilateral neural foraminal narrowing most prominent at C5-C6. No significant spinal canal stenosis. Lungs: Bullous emphysema partially visualized lung apices. Soft tissues: No significant subcutaneous tissue abnormality. IMPRESSION: No acute fracture. Multilevel degenerative changes as described. Dictated and Authenticated by: Latasha Cat MD. Ordering:VITA Brown MD
--- NOTE | 2023-11-02 21:09 | DI.VRAD_ITS ---
PROCEDURE INFORMATION: Exam: XR Left Shoulder Exam date and time: 11/02/2023 8:22 PM Age: 63 years old Clinical indication: Other: Fall pain TECHNIQUE: Imaging protocol: Radiologic exam of the left shoulder. Views: 2 or more views. COMPARISON: No relevant prior studies available. FINDINGS: Bones/joints: Mildly displaced fracture mid to distal clavicle. No dislocation. Soft tissues: Unremarkable. IMPRESSION: LEFT clavicle fracture. Dictated and Authenticated by: Randy Leon MD. Ordering:VITA Brown MD
--- NOTE | 2023-11-16 10:33 | NUR.NOTE ---
Access chart to get billing information for [facility]. Diagnosis and left/right. Nursing Note:
== END 2023-11-02 21:30 | disposition home or self-care (01) ==
PROVIDERS: Emergency Provider Emergency Medicine; PCP Family Medicine
DX: S42.035A Nondisplaced fracture of lateral end of left clavicle, initial encounter for closed fracture (principal); S00.01XA Abrasion of scalp, initial encounter; S80.811A Abrasion, right lower leg, initial encounter; Z23 Encounter for immunization; W17.89XA Other fall from one level to another, initial encounter
CPT/HCPCS: 90471; 90715; 99284; 70450; 72125; 73030; 99283

== ENCOUNTER 2025-02-09 18:15 | Emergency (ER) | payer BC, SELFPAY ==
--- NOTE | 2025-02-09 18:26 | ED.GENADUL_ITS ---
Discharge Plan Disposition Patient Disposition: Home Condition: Good Discharge Details Clinical Impression: Laceration of left leg Primary Care Provider: Jeffrey Cheng ED Provider: Abigail Rosenbaum Home Meds and New Rx's Prescriptions: No Action lisinopril 5 mg tablet 5 mg PO DAILY Qty: 90 3RF omeprazole 40 mg capsule,delayed release(DR/EC) 40 mg PO DAILY Qty: 90 3RF albuterol sulfate 90 mcg/actuation HFA aerosol inhaler 2 puff inhalation Q6H PRN (Reason: shortness of breath or wheezing) Qty: 8.5 5RF finasteride 5 mg tablet 5 mg PO DAILY Qty: 90 4RF tamsulosin 0.4 mg capsule 0.4 mg PO DAILY Qty: 90 4RF ibuprofen [Advil] 200 mg tablet 600 mg PO BID Discharge Instructions Instructions: Laceration Repair With Stitches ED Additional Instructions: Please have your sutures removed in 10 to 14 days. This may be done here in the emergency department or at your primary care provider's office as an office visit. Keep your wound clean and dry. Wash daily antibacterial soap and water. May apply thin layer bacitracin or triple antibiotic ointment. Cover with nonstick bandage. You likely have some bruising around the area/hematoma. I recommend that you apply ice pack for 15 to 20 minutes at a time and elevate your leg above heart level to help with swelling and bruising. You may use Tylenol 650 mg every 6 hours as needed for discomfort. For signs of infection such as redness, swelling, pus drainage, foul, increasing pain. If you notice any of these, please seek care immediately as may indicate need for antibiotics. Stand Alone Forms: Portal Information Referrals: Jeffrey Cheng MD [Primary Care Provider, Medicine] HPI General Date/Time Provider Initiated Documentation: 02/09/25 18:18 . HPI Narrative: Kurt is a 64-year-old male who presents the emergency department today for evaluation of skin tear to his bhatia. He reports that he hit on a sharp edge of the porch. It bled profusely, has been able to be controlled with gauze and pressure. He did report some wooziness immediately while bleeding was occurring, denies shortness of breath, palpitations, chest pain, or lightheadedness/presyncope at this time. He reports he is not on any anticoagulation. Admits to some distal numbness, but is able to ambulate without difficulty. Last tetanus 11/02/2023. Related Data Home Medications Medication Instructions Recorded Confirmed lisinopril 5 mg tablet 5 mg PO DAILY #90 tab-caps 1 05/02/23 02/09/25 omeprazole 40 mg capsule,delayed 40 mg PO DAILY #90 ta b-caps 03/01/24 02/09/25 release albuterol sulfate 90 mcg/actuation 2 puff inhalation Q 6H PRN 06/15/24 02/09/25 aerosol inhaler shortness of breath or wheez ing #8.5 grams finasteride 5 mg tablet 5 mg PO DAILY prostate #90 t abs 12/07/24 02/09/25 tamsulosin 0.4 mg capsule 0.4 mg PO DAILY urination #9 0 caps 12/07/24 02/09/25 ibuprofen 200 mg tablet (Advil) 600 mg PO BID 02/09/25 02/09/25 Previous Rx's Medication Instructions Recorded lisinopril 5 mg tablet 5 mg PO DAILY #90 tab-caps 1 05/02/23 omeprazole 40 mg capsule,delayed 40 mg PO DAILY #90 ta b-caps 03/01/24 release albuterol sulfate 90 mcg/actuation 2 puff inhalation Q 6H PRN 06/15/24 aerosol inhaler shortness of breath or wheez ing #8.5 grams finasteride 5 mg tablet 5 mg PO DAILY prostate #90 t abs 12/07/24 tamsulosin 0.4 mg capsule 0.4 mg PO DAILY urination #9 0 caps 12/07/24 Allergies Allergy/AdvReac Type Severity Reaction Status Date / Time Penicillins Allergy Severe Anaphylaxsi Verified 02/09/25 18:33 s Sulfa (Sulfonamide Allergy Severe Skin Rash Verified 02/09/25 18:33 Antibiotics) General LELAND: 3 Exam Const General: cooperative, healthy appearing, comfortable, no acute distress and well developed Nutritional Appearance: average body habitus and well nourished Orientation: alert and oriented x3 Resp Effort & Inspection: normal respiratory effort and able to speak in complete sentences Skin Trauma: laceration left anterior lower leg flap (5 cm V-shaped laceration) and involves subcutaneous tissue; no foreign bodies present and not contaminated Neuro General: patient alert, patient oriented x3, tone normal and moves all extremities Motor: muscle tone normal throughout and strength 5/5 throughout Sensory Exam: no sensory deficits noted Procedure Laceration Laceration 1: Patient Consented: Verbally Site: lower extremity Side (If applicable): left Description: flap (V-shaped, 5 cm) and clean Depth: simple, single layer Local anesthetic: Lidocaine 2%, with Epi and LET(lidocaine epinephrine tetracaine) Amount of anesthesia used (mL): 6 Pre-repair:: wound explored and irrigated extensively Skin layer closed with: nylon Suture size: 4-0 Number of sutures:: 4 Technique: horizontal mattress (x3) and simple, interrupted (x1) Medical Decision Making Kurt is a 64-year-old male who presents to the emergency department today for evaluation of left anterior bhatia. Bleeding well-controlled with gauze and pressure. His left bhatia. Physical exam remarkable for 5 cm V-shaped laceration to his anterior left bhatia. Bleeding well-controlled with gauze. Distal pulses intact, sensation grossly intact. Patient overall well-appearing History and presentation consistent with skin tear. No red flags concerning for neurovascular compromise or bony involvement. LET immediately applied upon arrival, with pressure dressing applied. Bleeding was able to be well- controlled with good anesthetic effect. 6 cc 2% lidocaine with epi injected locally with good effect. Wound was irrigated with 500 cc normal saline, then ChloraPrep spray applied. Forward to the base in a bloodless field, no foreign bodies visualized. Edges were well-approximated using four 4-0 Ethilon sutures (3 horizontal mattress, 1 simple interrupted). Tolerated procedure well No red flags in patient's history or physical exam. Need for prophylactic antibiotics at this time. Reviewed extensively red flags concerning for infection, he voices knowledge of his signs and agreement with plan of care. Reviewed discharge instructions with patient, including symptomatic management/wound care/monitoring of signs infection, importance of follow up with PCP, and red flags indicating need for return to emergency care. Pt voices agreement with plan of care [facility] All Active Problems (Updated 02/09/25 @ 20:05 by Abigail Carey) Laceration of left leg (Acute) Diverticula of colon (Acute) Emphysema lung (Acute) COPD (chronic obstructive pulmonary disease) (Chronic) Atherosclerosis of aorta (Acute) Acute sinusitis (Acute) Sensorineural hearing loss of left ear (Acute) Mixed conductive and sensorineural hearing loss of right ear with restricted hearing of left ear (Acute) Chronic serous otitis media, right ear (Acute) Rising PSA level (Acute) Depression (Chronic) Abdominal pain (Acute) Annual physical exam (Acute) Family history of colon cancer (Chronic) History of adenomatous polyp of colon (Chronic) Review patient history, and agree with plan by Octavia Carlos PA-C Tubular adenoma (Acute 07/19/14) 07/12/14-DR. BLACK recommends 3 year repeat Tobacco use disorder (Acute) Pneumonia, organism unspecified (Acute) Hypertension (Acute 11/27/14) Hearing loss (Acute 02/24/86) A.S. Family hx of prostate cancer (Acute) Blindness of one eye (Acute 02/24/86) Medical History Hyperplastic colon polyp (~07/2023) Abnormal colonoscopy (07/12/14) 07/12/14, Dr Black tubular adenoma Family history of prostate cancer Hearing loss Blindness of one eye (L) Pneumonia Tobacco use disorder Surgical History H/O colonoscopy (~07/2023) Dr Black, negative, rec repeat 5 years Family History Mother , 80's Essential hypertension COPD (chronic obstructive pulmonary disease) Depression Heart disease Hyperlipidemia Neoplasm Asthma Father , 70's Diabetes Essential hypertension Heart disease Hyperlipidemia Neoplasm PROSTATE Brother Essential hypertension Depression Neoplasm Alcohol abuse Heart disease Hypertension Sister Essential hypertension Depression Neoplasm Colon cancer Alcohol abuse Hypertension Grandfather Neoplasm Grandmother Essential hypertension Heart disease Brother Colon cancer Diabetes Hypertension Sister Hypertension Social History Smoking/Tobacco Use Status: Current every day Tobacco Type: cigarettes Tobacco: How many years used: 48 Smokeless tobacco user: other (Cigarettes) Quit status: considering quitting Second Hand Exposure: Yes Smoking risk assessment performed?: Yes Alcohol Intake: current Alcohol Intake frequency: a few times a week Alcohol type: beer Drug use: Occasionally Substance use type: marijuana and sedatives Details: 2 drinks of etoh around 11am, rum and coke Adopted: No Household members: none Housing: house Communication Needs: Hard of Hearing Education Level: high school Do you need help understanding health information?: Rarely current occupation: [employer] Pets and animals: Yes Pets and animals: dog(s) Sexually active: No Do you think of yourself as: lesbian/ford/homosexual Current gender identity: male What is your relationship status?: How often do you talk on the phone with friends or family?: three or more times per week How often do you get together with friends or relatives?: once per week How often do you attend sabianism or hoahaoism services?: decline to answer Do you belong to any clubs or organized social groups?: no Panel score (0-1 are the most socially isolated patients): 1 What type of physical activity do you participate in: none and other Details: working Duration: 45-60 minutes/day Frequency: daily Amena/Rastafarian: None Special amena needs: No Agree to transfusion: Yes Seatbelt use: always Helmet use: Yes Helmet use: always Drive intox or ride w/intox guard driver: No Working smoke detector in home: Yes Carbon monox detector in home: Yes Firearms in home: Yes Firearms unloaded and locked: Yes Do you feel safe at home: Yes Do you feel safe in your relationship?: Yes Victim of physical abuse: No Victim of emotional abuse: No Victim of sexual abuse: No
[2025-02-09 18:27] VITALS: BP 159/102; PULSE 115; RESP 18; O2SAT 97
[2025-02-09] MEDS: Lidocaine/Epinephri/Tetracaine Topical Gel 3 ML (18:41)
[2025-02-09 19:13] LABS: HCT 37.4 % (40.0-50.0); HGB 13.2 g/dL (13.5-17.5); MCH 32.4 pg (27.0-33.0); MCHC 35.3 % (32.0-36.0); MCV 92 fL (80-95); MPV 8.5 fL (8.0-11.0); Platelet Count 219 10^3/uL (130-400); RBC 4.08 10^6/uL (4.36-5.78); RDW 12.7 % (11.8-14.1); RDW-SD 42.6 fL; WBC 8.16 10^3/uL (4.4-10.8)
[2025-02-09 19:27] LABS: INR 1.1 (0.9-1.1); PTT Activated 23.7 sec (20.6-30.2); Prothrombin Time 10.6 sec (9.1-11.1)
[2025-02-09 19:45] VITALS: BP 139/71; PULSE 93; RESP 18
[2025-02-09] MEDS: Lidocaine 2% Multi-Dose W/EPI 1/100,000 20 ML VIAL IJ (20:05)
== END 2025-02-09 20:23 | disposition home or self-care (01) ==
PROVIDERS: Emergency Provider Nurse Practitioner Family; PCP Family Medicine
DX: S81.812A Laceration without foreign body, left lower leg, initial encounter (principal); W19.XXXA Unspecified fall, initial encounter
CPT/HCPCS: 99283 ×2; 12002; 85027; 85610; 85730; J2004

== ENCOUNTER 2025-02-23 13:43 | Emergency (ER) | payer BC, SELFPAY ==
--- NOTE | 2025-02-23 14:08 | ED.GENADUL_ITS ---
Discharge Plan Discharge Details Chief Complaint: SutureRem Primary Care Provider: Jeffrey Cheng ED Provider: Norberto Olsen Home Meds and New Rx's Prescriptions: No Action lisinopril 5 mg tablet 5 mg PO DAILY Qty: 90 3RF omeprazole 40 mg capsule,delayed release(DR/EC) 40 mg PO DAILY Qty: 90 3RF albuterol sulfate 90 mcg/actuation HFA aerosol inhaler 2 puff inhalation Q6H PRN (Reason: shortness of breath or wheezing) Qty: 8.5 5RF finasteride 5 mg tablet 5 mg PO DAILY Qty: 90 4RF tamsulosin 0.4 mg capsule 0.4 mg PO DAILY Qty: 90 4RF ibuprofen [Advil] 200 mg tablet 600 mg PO BID HPI General Date/Time Provider Initiated Documentation: 02/23/25 13:44 . HPI Narrative: MDM This is a quite well-appearing 64-year-old male with healing left lower ext remity laceration for which he had his sutures removed by nursing. No warmth or erythema to suggest cellulitis. No fluctuance to suggest abscess. He reportedly did not allow nurses to obtain vital signs. He did not wait for his paperwork. He had had no fevers and was advised to return if he developed any signs of infection fevers chills nausea or vomiting. HPI This is a 64-year-old male who reports falling 14 days ago on his porch and receiving 4 Ethilon sutures. He is here to have his sutures removed. Exam General: Well-appearing in no acute distress speaking in complete sentences. Head: Normocephalic, atraumatic. Eye: Extraocular eye movements intact. No conjunctival injection. No scleral icterus. Ear, nose, mouth, throat: Grossly normal inspection. Normal voice, handling secretions normally. Neck: Trachea midline. Cardiovascular: Well-perfused distal extremities. Respiratory: Nonlabored respiration. Gastrointestinal: Nondistended abdomen. Musculoskeletal: No edema. Moving all 4 extremities spontaneously. Anterior surface of the left bhatia there is a healing triangular-shaped laceration with sutures in place. No signs of erythema. No warmth. Skin: Normal for age and race, grossly normal temperature and turgor. No acute rash. Neurologic: Alert and appropriate, no apparent acute deficits. Related Data Home Medications ?Medication ?Instructions ?Recorded ?Confirmed lisinopril 5 mg tablet 5 mg PO DAILY #90 tab-caps 1 05/02/23 02/09/25 omeprazole 40 mg capsule,delayed 40 mg PO DAILY #90 ta b-caps 03/01/24 02/09/25 release albuterol sulfate 90 mcg/actuation 2 puff inhalation Q 6H PRN 06/15/24 02/09/25 aerosol inhaler shortness of breath or wheez ing #8.5 grams finasteride 5 mg tablet 5 mg PO DAILY prostate #90 t abs 12/07/24 02/09/25 tamsulosin 0.4 mg capsule 0.4 mg PO DAILY urination #9 0 caps 12/07/24 02/09/25 ibuprofen 200 mg tablet (Advil) 600 mg PO BID 02/09/25 02/09/25 Previous Rx's ?Medication ?Instructions ?Recorded lisinopril 5 mg tablet 5 mg PO DAILY #90 tab-caps 1 05/02/23 omeprazole 40 mg capsule,delayed 40 mg PO DAILY #90 ta b-caps 03/01/24 release albuterol sulfate 90 mcg/actuation 2 puff inhalation Q 6H PRN 06/15/24 aerosol inhaler shortness of breath or wheez ing #8.5 grams finasteride 5 mg tablet 5 mg PO DAILY prostate #90 t abs 12/07/24 tamsulosin 0.4 mg capsule 0.4 mg PO DAILY urination #9 0 caps 12/07/24 Allergies Allergy/AdvReac Type Severity Reaction Status Date / Time Penicillins Allergy Severe Anaphylaxsi Verified 02/23/25 13:48 s Sulfa (Sulfonamide Allergy Severe Skin Rash Verified 02/23/25 13:48 Antibiotics) General Stated Complaint: SutureRem LELAND: 4 Course Vital Signs Vital signs: Comment declined VS 02/23/25 13:48 PFSH All Active Problems (Updated 02/09/25 @ 20:05 by Abigail Carey) Laceration of left leg (Acute) Diverticula of colon (Acute) Emphysema lung (Acute) COPD (chronic obstructive pulmonary disease) (Chronic) Atherosclerosis of aorta (Acute) Acute sinusitis (Acute) Sensorineural hearing loss of left ear (Acute) Mixed conductive and sensorineural hearing loss of right ear with restricted hearing of left ear (Acute) Chronic serous otitis media, right ear (Acute) Rising PSA level (Acute) Depression (Chronic) Abdominal pain (Acute) Annual physical exam (Acute) Family history of colon cancer (Chronic) History of adenomatous polyp of colon (Chronic) Review patient history, and agree with plan by Octavia Carlos PA-C Tubular adenoma (Acute 07/19/14) 07/12/14-DR. BLACK recommends 3 year repeat Tobacco use disorder (Acute) Pneumonia, organism unspecified (Acute) Hypertension (Acute 11/27/14) Hearing loss (Acute 02/24/86) A.S. Family hx of prostate cancer (Acute) Blindness of one eye (Acute 02/24/86) Medical History Hyperplastic colon polyp (~07/2023) Abnormal colonoscopy (07/12/14) 07/12/14, Dr Black tubular adenoma Family history of prostate cancer Hearing loss Blindness of one eye (L) Pneumonia Tobacco use disorder Surgical History H/O colonoscopy (~07/2023) Dr Black, negative, rec repeat 5 years Family History Mother , 80's Essential hypertension COPD (chronic obstructive pulmonary disease) Depression Heart disease Hyperlipidemia Neoplasm Asthma Father , 70's Diabetes Essential hypertension Heart disease Hyperlipidemia Neoplasm PROSTATE Brother Essential hypertension Depression Neoplasm Alcohol abuse Heart disease Hypertension Sister Essential hypertension Depression Neoplasm Colon cancer Alcohol abuse Hypertension Grandfather Neoplasm Grandmother Essential hypertension Heart disease Brother Colon cancer Diabetes Hypertension Sister Hypertension Social History Smoking/Tobacco Use Status: Current every day Tobacco Type: cigarettes Tobacco: How many years used: 48 Smokeless tobacco user: other (Cigarettes) Quit status: considering quitting Second Hand Exposure: Yes Smoking risk assessment performed?: Yes Alcohol Intake: current Alcohol Intake frequency: a few times a week Alcohol type: beer Drug use: Occasionally Substance use type: marijuana and sedatives Details: 2 drinks of etoh around 11am, rum and coke Adopted: No Household members: none Housing: house Communication Needs: Hard of Hearing Education Level: high school Do you need help understanding health information?: Rarely current occupation: [employer] Pets and animals: Yes Pets and animals: dog(s) Sexually active: No Do you think of yourself as: lesbian/ford/homosexual Current gender identity: male What is your relationship status?: How often do you talk on the phone with friends or family?: three or more times per week How often do you get together with friends or relatives?: once per week How often do you attend confucianism or caodaism services?: decline to answer Do you belong to any clubs or organized social groups?: no Panel score (0-1 are the most socially isolated patients): 1 What type of physical activity do you participate in: none and other Details: working Duration: 45-60 minutes/day Frequency: daily Amena/Rastafarian: None Special amena needs: No Agree to transfusion: Yes Seatbelt use: always Helmet use: Yes Helmet use: always Drive intox or ride w/intox cmv driver: No Working smoke detector in home: Yes Carbon monox detector in home: Yes Firearms in home: Yes Firearms unloaded and locked: Yes Do you feel safe at home: Yes Do you feel safe in your relationship?: Yes Victim of physical abuse: No Victim of emotional abuse: No Victim of sexual abuse: No
== END 2025-02-23 13:58 | disposition home or self-care (01) ==
LOC: ER 13:47
PROVIDERS: Emergency Provider Emergency Medicine; PCP Family Medicine
DX: Z48.02 Encounter for removal of sutures (principal)
CPT/HCPCS: 99281

== ENCOUNTER 2025-03-12 06:52 | Emergency (ER) | payer BC, SELFPAY ==
[2025-03-12 06:56] VITALS: BP 194/80; PULSE 110; RESP 20; TEMP 36.6; O2SAT 98
[2025-03-12 06:58] VITALS: BP 194/80; PULSE 110; RESP 20; O2SAT 98
--- NOTE | 2025-03-12 07:15 | W.ED.GENAD ---
Discharge Plan Disposition Patient Disposition: Home Discharge Details Clinical Impression: Inguinal hernia, right, AAA (abdominal aortic aneurysm) Primary Care Provider: Jeffrey Cheng ED Provider: Norberto Olsen [place] Meds and New Rx's Prescriptions: Continued omeprazole 40 mg capsule,delayed release(DR/EC) 40 mg PO DAILY Qty: 90 3RF albuterol sulfate 90 mcg/actuation HFA aerosol inhaler 2 puff inhalation Q6H PRN (Reason: shortness of breath or wheezing) Qty: 8.5 5RF doxycycline hyclate 100 mg capsule 100 mg PO BID Qty: 14 0RF prednisone 20 mg tablet 40 mg PO DAILY 5 Days Qty: 10 0RF mupirocin 2 % ointment 1 applic topical TID Qty: 15 0RF finasteride 5 mg tablet 5 mg PO DAILY Qty: 90 4RF tamsulosin 0.4 mg capsule 0.4 mg PO DAILY Qty: 90 4RF lisinopril 5 mg tablet 5 mg PO DAILY Qty: 90 3RF ibuprofen [Advil] 200 mg tablet 600 mg PO BID Discharge Instructions Additional Instructions: You are seen in the Emergency Department for your abdominal pain. Your CAT scan shows that you have a large right-sided inguinal hernia. As we discussed you develop nausea or vomiting please return to the emergency department. Also please return if he developed any fevers. You are also found to have an abdominal aortic aneurysm. This is an enlarged blood vessel in your abdomen. Please follow-up with your primary care provider for an ultrasound. Stand Alone Forms: Portal Information Discharge Data Discharge Date/Time-TO BE ENTERED AT DEPARTURE: 03/12/25 11:02 HPI General Date/Time Provider Initiated Documentation: 03/12/25 06:56. HPI Narrative: MDM This is an uncomfortable appearing tachycardic male with incarcerated likely inguinal hernia for which he will undergo CT abdomen pelvis being made n.p.o. and receive morphine. There are no overlying skin changes to suggest strangulation. He has not been vomiting making my suspicion lower for small bowel obstruction. No rash to abdomen to suggest zoster. No fevers or right lower quadrant tenderness to suggest appendicitis. No diarrhea to suggest diverticulitis. No epigastric tenderness to suggest pancreatitis. No testicular pain to suggest torsion. 8:27 AM Reassuring CBC no anemia or thrombocytopenia nor leukocytosis. Reassuring comprehensive metabolic panel. Normal reassuring lactate. 10:[address] scan showed large inguinal hernia. I was in touch with Dr. Marino from the surgical team. She reviewed the patient's scan. She did not feel that the patient's symptoms represented obstruction. She was able to reduce his hernia at bedside and will help arrange outpatient follow-up. Patient and I discussed that he should return to the emergency department if you develop nausea or vomiting did not stop if he developed any fevers or have any other concerns. He understood his return indications and was discharged with an empiric trial of expectant outpatient management. I advised him of his AAA. I advised primary care follow-up. We discussed that he would benefit from surveillance ultrasounds. I have asked healthy coordinator to have him set up with PCP follow-up with neck several weeks. He will follow-up with general surgery in 2 days on 03/14 at 9 AM. HPI This is a patient presenting with a hernia. The patient has been experiencing a groin hernia since early summer, which initially was small and could be manually reduced. However, in the last couple of weeks, the hernia has significantly enlarged to the size of his fist and become swollen. He reports no episodes of vomiting but does experience a lot of pain and nausea. His last bowel movement was this morning. He reports no fever, dysuria, or chest pain. His last intake of food or drink was this morning. He has no history of abdominal surgeries or kidney stones. A CT scan has not been performed for this condition. Exam General: Uncomfortable-appearing in no acute distress speaking in complete sentences. Head: Normocephalic, atraumatic. Eye: Extraocular eye movements intact. No conjunctival injection. No scleral icterus. Ear, nose, mouth, throat: Grossly normal inspection. Normal voice, handling secretions normally. Neck: Trachea midline. Cardiovascular: Well-perfused distal extremities. Respiratory: Nonlabored respiration. Gastrointestinal: Nondistended abdomen. Soft abdomen. Large right incarcerated inguinal hernia extending into the scrotum. Musculoskeletal: No edema. Moving all 4 extremities spontaneously. Skin: Normal for age and race, grossly normal temperature and turgor. No acute rash. Neurologic: Alert and appropriate, no apparent acute deficits. Related Data Home Medications ?Medication ?Instructions ?Recorded ?Confirmed omeprazole 40 mg capsule,delayed 40 mg PO DAILY #90 tab-caps 03/01/24 03/12/25 release albuterol sulfate 90 mcg/actuation 2 puff inhalation Q6H PRN 06/15/24 03/12/25 aerosol inhaler shortness of breath or wheezing #8.5 grams finasteride 5 mg tablet 5 mg PO DAILY prostate #90 tabs 12/07/24 03/12/25 tamsulosin 0.4 mg capsule 0.4 mg PO DAILY urination #90 caps 12/07/24 03/12/25 ibuprofen 200 mg tablet (Advil) 600 mg PO BID 02/09/25 03/12/25 lisinopril 5 mg tablet 5 mg PO DAILY #90 tab-caps 03/05/25 03/12/25 doxycycline hyclate 100 mg capsule 100 mg PO BID #14 caps 03/09/25 03/12/25 mupirocin 2 % topical ointment 1 applic topical TID #15 grams 03/09/25 03/12/25 prednisone 20 mg tablet 40 mg (2 x 20 mg) PO DAILY 5 days 03/09/25 03/12/25 #10 tabs Previous Rx's ?Medication ?Instructions ?Recorded omeprazole 40 mg capsule,delayed 40 mg PO DAILY #90 tab-caps 03/01/24 release albuterol sulfate 90 mcg/actuation 2 puff inhalation Q6H PRN 06/15/24 aerosol inhaler shortness of breath or wheezing #8.5 grams finasteride 5 mg tablet 5 mg PO DAILY prostate #90 tabs 12/07/24 tamsulosin 0.4 mg capsule 0.4 mg PO DAILY urination #90 caps 12/07/24 lisinopril 5 mg tablet 5 mg PO DAILY #90 tab-caps 03/05/25 doxycycline hyclate 100 mg capsule 100 mg PO BID #14 caps 03/09/25 mupirocin 2 % topical ointment 1 applic topical TID #15 grams 03/09/25 prednisone 20 mg tablet 40 mg (2 x 20 mg) PO DAILY 5 days 03/09/25 #10 tabs Allergies Allergy/AdvReac Type Severity Reaction Status Date / Time Penicillins Allergy Severe Anaphylaxsi Verified 03/12/25 06:58 s Sulfa (Sulfonamide Allergy Severe Skin Rash Verified 03/12/25 06:58 Antibiotics) General Stated Complaint: Abd Prob LELAND: 3 Course Vital Signs Vital signs: Vital Signs Pulse 110 H 03/12/25 06:56 Respiratory Rate 20 03/12/25 06:56 Blood Pressure 194/80 H 03/12/25 06:56 Pulse Oximetry 98 03/12/25 06:56 Pulse 110 H 03/12/25 06:58 Respiratory Rate 20 03/12/25 06:58 Blood Pressure 194/80 H 03/12/25 06:58 Pulse Oximetry 98 03/12/25 06:58 PFSH All Active Problems (Updated 03/12/25 @ 10:29 by Norberto Olsen MD) AAA (abdominal aortic aneurysm) (Acute) Inguinal hernia, right (Acute) Diverticula of colon (Acute) Emphysema lung (Acute) COPD (chronic obstructive pulmonary disease) (Chronic) Atherosclerosis of aorta (Acute) Acute sinusitis (Acute) Sensorineural hearing loss of left ear (Acute) Mixed conductive and sensorineural hearing loss of right ear with restricted hearing of left ear (Acute) Chronic serous otitis media, right ear (Acute) Rising PSA level (Acute) Depression (Chronic) Abdominal pain (Acute) Annual physical exam (Acute) Family history of colon cancer (Chronic) History of adenomatous polyp of colon (Chronic) Review patient history, and agree with plan by Octavia FAIR-Elida Tubular adenoma (Acute 07/19/14) 07/12/14-DR. BLACK recommends 3 year repeat Tobacco use disorder (Acute) Pneumonia, organism unspecified (Acute) Hypertension (Acute 11/27/14) Hearing loss (Acute 02/24/86) A.S. Family hx of prostate cancer (Acute) Blindness of one eye (Acute 02/24/86) Medical History Hyperplastic colon polyp (~07/2023) Abnormal colonoscopy (07/12/14) 07/12/14, Dr Black tubular adenoma Family history of prostate cancer Hearing loss Blindness of one eye (L) Pneumonia Tobacco use disorder Surgical History H/O colonoscopy (~07/2023) Dr Black, negative, rec repeat 5 years Family History Mother , 80's Essential hypertension COPD (chronic obstructive pulmonary disease) Depression Heart disease Hyperlipidemia Neoplasm Asthma Father , 70's Diabetes Essential hypertension Heart disease Hyperlipidemia Neoplasm PROSTATE Brother Essential hypertension Depression Neoplasm Alcohol abuse Heart disease Hypertension Sister Essential hypertension Depression Neoplasm Colon cancer Alcohol abuse Hypertension Grandfather Neoplasm Grandmother Essential hypertension Heart disease Brother Colon cancer Diabetes Hypertension Sister Hypertension Social History Smoking/Tobacco Use Status: Current every day Tobacco Type: cigarettes Tobacco: How many years used: 48 Smokeless tobacco user: other (Cigarettes) Quit status: considering quitting Second Hand Exposure: Yes Smoking risk assessment performed?: Yes Alcohol Intake: current Alcohol Intake frequency: a few times a week Alcohol type: beer Drug use: Occasionally Substance use type: marijuana and sedatives Details: 2 drinks of etoh around 11am, rum and coke Adopted: No Household members: none Housing: house Communication Needs: Hard of Hearing Education Level: high school Do you need help understanding health information?: Rarely current occupation: [employer] Machine Operator Pets and animals: Yes Pets and animals: dog(s) Sexually active: No Do you think of yourself as: lesbian/ford/homosexual Current gender identity: male What is your relationship status?: How often do you talk on the phone with friends or family?: three or more times per week How often do you get together with friends or relatives?: once per week How often do you attend holiness or hinduism services?: decline to answer Do you belong to any clubs or organized social groups?: no Panel score (0-1 are the most socially isolated patients): 1 What type of physical activity do you participate in: none and other Details: working Duration: 45-60 minutes/day Frequency: daily Amena/Amish: None Special amena needs: No Agree to transfusion: Yes Seatbelt use: always Helmet use: Yes Helmet use: always Drive intox or ride w/intox front end driver: No Working smoke detector in home: Yes Carbon monox detector in home: Yes Firearms in home: Yes Firearms unloaded and locked: Yes Do you feel safe at home: Yes Do you feel safe in your relationship?: Yes Victim of physical abuse: No Victim of emotional abuse: No Victim of sexual abuse: No
[2025-03-12] MEDS: MORPHine 10 MG/ML VIAL 4 MG IVP (07:39)
[2025-03-12] MEDS: Normal Saline 500 ML IV (07:46)
[2025-03-12 07:49] LABS: Abs Immature Grans 0.02 10^3/uL (0.0-0.06); HCT 42.3 % (40.0-50.0); HGB 14.5 g/dL (13.5-17.5); Immature Grans % 0.2 %; MCH 31.9 pg (27.0-33.0); MCHC 34.3 % (32.0-36.0); MCV 93 fL (80-95); MPV 8.6 fL (8.0-11.0); Platelet Count 244 10^3/uL (130-400); RBC 4.55 10^6/uL (4.36-5.78); RDW 12.8 % (11.8-14.1); RDW-SD 43.9 fL; WBC 8.19 10^3/uL (4.4-10.8)
[2025-03-12] MEDS: Normal Saline - Diluent 50 ML VIAL IJ (08:00)
[2025-03-12] MEDS: Normal Saline Flush 10 ML SYR IVP (08:00)
[2025-03-12 08:08] LABS: ALT 10 U/L (10-49); AST 22 U/L (<34); Albumin 4.4 g/dL (3.2-5.0); Alkaline Phosphatase 84 U/L (46-116); Anion Gap 6.7 mmol/L (3-11); BUN 18 mg/dL (9-23); Bilirubin, Total 0.7 mg/dL (0.2-1.2); CO2 22.3 mmol/L (20.0-31.0); Calcium 8.8 mg/dL (8.3-10.6); Chloride 107 mmol/L (98-107); Glucose 122 mg/dL (74-106); Potassium 4.0 mmol/L (3.5-5.1); Sodium 136 mmol/L (136-145); Total Protein 7.8 g/dL (5.7-8.2)
[2025-03-12] MEDS: Omnipaque 350 MG/ML 100 ML BTL IJ (08:18)
--- NOTE | 2025-03-12 08:24 | DI.CT_ITS ---
Exam(s) CT ABDOMEN PELVIS W EXAM: CT ABDOMEN PELVIS W CLINICAL HISTORY: Right-sided hernia TECHNIQUE: Imaging Protocol: Axial computed tomography images with coronal and sagittal reformatted images were created and reviewed. CONTRAST MATERIAL: Intravenous: Omnipaque 350 Contrast volume:75 mL Oral: No COMPARISON: CT CHEST - LUNG CANCER SCREENING from 11/24/2017 FINDINGS: ABDOMEN: Lung Bases: No acute abnormality. Liver: Normal density. No measurable mass. Portal, Superior Mesenteric, and Splenic Veins: Unremarkable. Gallbladder and Biliary Tract: There are multiple stones and or sludge in the gallbladder. There is no biliary ductal dilatation. Pancreas: Normal density, no abnormal calcifications or inflammatory process. Spleen: Normal. Adrenals: No masses seen. Kidneys: Normal size, contour and axis. No radiodense stones or obstructive uropathy. No masses seen. Abdominal Aorta: There is an infrarenal abdominal aortic aneurysm measuring 3.2 x 3.0 cm. There is extensive thrombus seen within the aneurysm with the lumen measuring 1.1 cm. 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 There is reconstitution on the left at the level of the left common femoral artery. Bowel: There is diverticulosis of the colon without evidence of acute diverticulitis. There is a large right inguinal hernia extending into the scrotum containing fluid and small bowel. There are fluid-filled mildly dilated loops of small bowel in the scrotum. The small bowel proximally shows very mi nimal dilatation. There is mild bowel wall thickening seen in central small bowel loops which may represent an enteritis. Appendix is unremarkable. Peritoneal Cavity: No ascites, collection or mesenteric inflammatory response. No free air. Lymph Nodes: Within normal limits. Bones: Within normal limits for the patient's age. Soft Tissues: There is a small fat containing left inguinal hernia. PELVIS: Bladder: Symmetric distention, no gross wall thickening. Reproductive Organs: Unremarkable as visualized. Lymph Nodes: Within normal limits. Bones: Within normal limits for the patient's age. IMPRESSION: 1. Large right inguinal hernia extending into the scrotum containing small bowel and fluid. No definite evidence to suggest incarceration. 2. There are mildly dilated loops of small bowel proximally. Mild early obstruction cannot be entirely excluded. 3. Mild bowel wall thickening and central small bowel loops which may represent an enteritis. 4. 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 There is reconstitution on the left at the level of the left common femoral artery. 5. 3.2 x 3.0 cm infrarenal abdominal aortic aneurysm. There is extensive thrombus seen within the aneurysm with an effective lumen of 1.1 cm. 6. Cholelithiasis. No biliary ductal dilatation. 7. Small fat containing left inguinal hernia. 8. Findings were discussed with Dr. Olsen at 9:20 a.m. on 03/12/2025. RADIATION DOSE DELIVERED: 347.95mGy.cm Total DLP DATA REPOSITORY: All CT scans at this facility are submitted to the National Radiology Data Registry (NRDR) Dose Index Registry (DIR) with the [employer] (ACR). RADIATION OPTIMIZATION: All CT scans at this facility use at least one of these dose optimization techniques: automated exposure control; mA and/or kV adjustment per patient size (includes targeted exams where dose is matched to clinical indication); or iterative reconstruction.
--- NOTE | 2025-03-12 10:13 | SCONE_ITS ---
Date of service: 03/12/25 Time of Service: 10:13 Assessment and Plan Assessment and plan (1) Inguinal hernia, right: Status: Acute Assessment and plan: Patient is a 64-year-old male who presented to the emergency department today with increasing right groin pain. He notes that he has a right inguinal hernia which has increased in size about a month ago. He notes at home he has been unable to reduce this hernia for the past month. He presented today as he had increased pain in this area. He underwent further workup in the emergency department and was found to have unremarkable laboratory findings. He also had a CT abdomen pelvis which showed a large right inguinal hernia containing small bowel. There was no evidence of incarceration or bowel ischemia. There was mention on this imaging of potential bowel obstruction however on my review the bowel entering the hernia is decompressed and he has had ongoing bowel function and no evidence of nausea or vomiting. On exam in the emergency department he is afebrile and hemodynamically stable. He has an easily reducible large right inguinal hernia that is mildly tender to palpation without overlying skin changes. His abdomen otherwise is soft, nondistended, and nontender to palpation. Discussed with him the finding of a right inguinal hernia. Today on presentation he does not have any indication for emergent surgical intervention however given his ongoing discomfort would recommend outpatient repair of this large right inguinal hernia. Signs and symptoms for which to monitor were discussed with him today and for which to present to the emergency department. He will follow-up in the general surgery clinic this week to discuss operative intervention. History of Present Illness Narrative: The patient is a 64-year-old male who presents with a right inguinal hernia. He has been experiencing the hernia since the previous summer, initially small in size. He noticed an increase in its size about a month ago. This morning, he experienced a flare-up, accompanied by pain and swelling in his scrotum. The hernia was previously more comfortable when it was smaller and could be manually reduced. For the past month, he notes he has been unable to reduce the hernia at home. He reports no associated nausea or vomiting and had two bowel movements this morning without any blood in the stool. He has not experienced any fevers or chills. He denies any overlying skin changes and presented due to increased pain in this area. He has no history of abdominal surgeries. He has a history of heavy smoking, consuming up to 2 packs per day, but has since reduced his intake to half a pack every 2 to 3 days. He has no history of hernia repair surgeries. He has undergone eye surgery in the past. PAST SURGICAL HISTORY: Eye surgery Review of Systems Constitutional Constitutional: Denies chills and Denies fever(s) Cardiovascular Cardiovascular: Denies chest pain and Denies dyspnea Respiratory Respiratory: Denies dyspnea Gastrointestinal Gastrointestinal: Denies nausea and Denies vomiting Genitourinary Genitourinary: Denies dysuria PFSH All Active Problems (Updated 03/12/25 @ 10:29 by Norberto Olsen MD) AAA (abdominal aortic aneurysm) (Acute) Inguinal hernia, right (Acute) Diverticula of colon (Acute) Emphysema lung (Acute) COPD (chronic obstructive pulmonary disease) (Chronic) Atherosclerosis of aorta (Acute) Acute sinusitis (Acute) Sensorineural hearing loss of left ear (Acute) Mixed conductive and sensorineural hearing loss of right ear with restricted hearing of left ear (Acute) Chronic serous otitis media, right ear (Acute) Rising PSA level (Acute) Depression (Chronic) Abdominal pain (Acute) Annual physical exam (Acute) Family history of colon cancer (Chronic) History of adenomatous polyp of colon (Chronic) Review patient history, and agree with plan by Octavia Carlos PA-C Tubular adenoma (Acute 07/19/14) 07/12/14-DR. GLASS recommends 3 year repeat Tobacco use disorder (Acute) Pneumonia, organism unspecified (Acute) Hypertension (Acute 11/27/14) Hearing loss (Acute 02/24/86) A.S. Family hx of prostate cancer (Acute) Blindness of one eye (Acute 02/24/86) Medical History Hyperplastic colon polyp (~07/2023) Abnormal colonoscopy (07/12/14) 07/12/14, Dr Glass tubular adenoma Family history of prostate cancer Hearing loss Blindness of one eye (L) Pneumonia Tobacco use disorder Surgical History H/O colonoscopy (~07/2023) Dr Glass, negative, rec repeat 5 years Family History Mother , 80's Essential hypertension COPD (chronic obstructive pulmonary disease) Depression Heart disease Hyperlipidemia Neoplasm Asthma Father , 70's Diabetes Essential hypertension Heart disease Hyperlipidemia Neoplasm PROSTATE Brother Essential hypertension Depression Neoplasm Alcohol abuse Heart disease Hypertension Sister Essential hypertension Depression Neoplasm Colon cancer Alcohol abuse Hypertension Grandfather Neoplasm Grandmother Essential hypertension Heart disease Brother Colon cancer Diabetes Hypertension Sister Hypertension Social History Smoking/Tobacco Use Status: Current every day Tobacco Type: cigarettes Tobacco: How many years used: 48 Smokeless tobacco user: other (Cigarettes) Quit status: considering quitting Second Hand Exposure: Yes Smoking risk assessment performed?: Yes Alcohol Intake: current Alcohol Intake frequency: a few times a week Alcohol type: beer Drug use: Occasionally Substance use type: marijuana and sedatives Details: 2 drinks of etoh around 11am, rum and coke Adopted: No Household members: none Housing: house Communication Needs: Hard of Hearing Education Level: high school Do you need help understanding health information?: Rarely current occupation: [employer] Pets and animals: Yes Pets and animals: dog(s) Sexually active: No Do you think of yourself as: lesbian/ford/homosexual Current gender identity: male What is your relationship status?: How often do you talk on the phone with friends or family?: three or more times per week How often do you get together with friends or relatives?: once per week How often do you attend hinduism or yarsani services?: decline to answer Do you belong to any clubs or organized social groups?: no Panel score (0-1 are the most socially isolated patients): 1 What type of physical activity do you participate in: none and other Details: working Duration: 45-60 minutes/day Frequency: daily Amena/Faith: None Special amena needs: No Agree to transfusion: Yes Seatbelt use: always Helmet use: Yes Helmet use: always Drive intox or ride w/intox courtesy car driver: No Working smoke detector in home: Yes Carbon monox detector in home: Yes Firearms in home: Yes Firearms unloaded and locked: Yes Do you feel safe at home: Yes Do you feel safe in your relationship?: Yes Victim of physical abuse: No Victim of emotional abuse: No Victim of sexual abuse: No Exam Narrative Exam Narrative: General: Well appearing, no acute distress. Skin: Good turgor, no visible rashes or lesion HEENT: Normocephalic, atraumatic CV: Regular rate Lungs: Bilateral equal chest rise, non-labored breathing Abdomen: Soft, non-tender, non-distended, large reducible right inguinal hernia Extremities: Warm, well perfused Neurologic: No focal deficits Psychiatric: Alert and oriented, normal mood and affect Results Last Vital Signs Temp 36.6 C 03/12/25 06:56 Pulse 110 H 03/12/25 06:58 Resp 20 03/12/25 06:58 BP 194/80 H 03/12/25 06:58 Pulse Ox 98 03/12/25 06:58 Labs 03/12/25 07:44 03/12/25 07:44 Labs: Laboratory Results - last 24 hr 03/12/25 07:44 WBC 8.19 RBC 4.55 Hgb 14.5 Hct 42.3 MCV 93 MCH 31.9 MCHC 34.3 RDW 12.8 Plt Count 244 MPV 8.6 Immature Gran % 0.2 Neutrophils % 76.3 Lymphocytes % 16.6 Monocytes % 6.1 Eosinophils % 0.2 Basophils % 0.6 Nucleated RBC % 0.0 Absolute Neutrophils 6.24 Absolute Lymphocytes 1.36 Absolute Monocytes 0.50 Absolute Eosinophils 0.02 Absolute Basophils 0.05 VBG Lactate 1.4 Sodium 136 Potassium 4.0 Chloride 107 Carbon Dioxide 22.3 Anion Gap 6.7 BUN 18 Creatinine 1.14 Est GFR (CKD-EPI 2020) 64.71 Glucose 122 H Calcium 8.8 Total Bilirubin 0.7 AST 22 ALT 10 Alkaline Phosphatase 84 Total Protein 7.8 Albumin 4.[address] scan report/results: report reviewed and image reviewed
[2025-03-12 10:29] VITALS: BP 161/82; PULSE 85; RESP 17; O2SAT 98
--- NOTE | 2025-03-12 10:38 | NUR.NOTE ---
Follow up appointment at [facility] on 03/14 @9am with Dr. Kingston Nursing Note:
[2025-03-12] MEDS: MORPHine IR 15 MG TAB PO (10:51)
== END 2025-03-12 11:02 | disposition home or self-care (01) ==
PROVIDERS: Emergency Provider Emergency Medicine; PCP Family Medicine
DX: K40.90 Unilateral inguinal hernia, without obstruction or gangrene, not specified as recurrent (principal); I71.43 Infrarenal abdominal aortic aneurysm, without rupture; K80.20 Calculus of gallbladder without cholecystitis without obstruction; I10 Essential (primary) hypertension; J44.9 Chronic obstructive pulmonary disease, unspecified; F17.210 Nicotine dependence, cigarettes, uncomplicated
CPT/HCPCS: 36415; 80053; 96361; 96374; 99285; 74177; 83605; 85025; J2270; J3490

== ENCOUNTER 2025-03-24 00:21 | Emergency (ER) | payer BC, SELFPAY ==
[2025-03-24 00:15] VITALS: BP 107/51; PULSE 88; RESP 20; TEMP 35.9; O2SAT 98
--- NOTE | 2025-03-24 00:18 | ED.GENADUL_ITS ---
Discharge Plan Disposition Patient Disposition: Transfer-Acute Inpatient Care Specific Acute Inpt Facility: [facility] Condition: Stable Discharge Details Clinical Impression: Abdominal aorta thrombosis Primary Care Provider: Jeffrey Cheng ED Provider: Alphonso Tucker Home Meds and New Rx's Prescriptions: No Action prednisone 20 mg tablet 40 mg PO DAILY Patient Comments: TAKE 2 TABLETS BY MOUTH EVERY DAY FOR 5 DAYS tramadol 50 mg tablet 50 mg PO Q8H PRN (Reason: pain) Qty: 10 0RF albuterol sulfate 90 mcg/actuation HFA aerosol inhaler 2 puff inhalation Q6H PRN (Reason: shortness of breath or wheezing) Qty: 8.5 5RF finasteride 5 mg tablet 5 mg PO DAILY Qty: 90 4RF tamsulosin 0.4 mg capsule 0.4 mg PO DAILY Qty: 90 4RF lisinopril 5 mg tablet 5 mg PO DAILY Qty: 90 3RF omeprazole 40 mg capsule,delayed release(DR/EC) 40 mg PO DAILY Qty: 90 3RF nicotine [Nicoderm CQ] 21 mg/24 hr patch 24 hour 1 patch transdermal Q24H Qty: 28 1RF HPI General Mode of arrival: EMS . Date/Time Provider Initiated Documentation: 03/24/25 00:21 . Limitations to Documentation: no limitations . Information obtained by: patient, RN notes reviewed and old records reviewed . HPI Narrative: Patient presents to ED from home with right hip pain, numbness and weakness involving right leg, sliding out of his chair onto the floor after trying to get up. Patient reports that he has a known right inguinal hernia as well as a AAA and vascular disease. He has had occasional mild numbness and tingling in both legs. This evening while sitting in the chair noticed that both legs were numb and tingly. Attempted to get up and was unable to because of pain and weakness in the right leg. Right leg still feels like it is asleep and he has pain in the right buttock and thigh area. Denies having abdominal pain or back pain. Still has pain and discomfort where his inguinal hernia is but this is unchanged. Reports that the left leg feels like it is back to normal. Denies any upper extremity symptoms. Related Data Home Medications ?Medication ?Instructions ?Recorded ?Confirmed albuterol sulfate 90 mcg/actuation 2 puff inhalation Q 6H PRN 06/15/24 03/24/25 aerosol inhaler shortness of breath or wheez ing #8.5 grams finasteride 5 mg tablet 5 mg PO DAILY prostate #90 t abs 12/07/24 03/24/25 tamsulosin 0.4 mg capsule 0.4 mg PO DAILY urination #9 0 caps 12/07/24 03/24/25 lisinopril 5 mg tablet 5 mg PO DAILY #90 tab-caps 1 05/06/24 03/24/25 omeprazole 40 mg capsule,delayed 40 mg PO DAILY #90 ta b-caps 03/18/25 03/24/25 release prednisone 20 mg tablet 40 mg PO DAILY 03/19/2502/26 tramadol 50 mg tablet 50 mg PO Q8H PRN pain #10 ta bs 03/19/25 03/24/25 nicotine 21 mg/24 hr daily 1 patch transdermal Q24H #2 8 ea 03/23/25 03/24/25 transdermal patch (Nicoderm CQ) Previous Rx's ?Medication ?Instructions ?Recorded albuterol sulfate 90 mcg/actuation 2 puff inhalation Q 6H PRN 06/15/24 aerosol inhaler shortness of breath or wheez ing #8.5 grams finasteride 5 mg tablet 5 mg PO DAILY prostate #90 t abs 12/07/24 tamsulosin 0.4 mg capsule 0.4 mg PO DAILY urination #9 0 caps 12/07/24 lisinopril 5 mg tablet 5 mg PO DAILY #90 tab-caps 1 05/06/24 omeprazole 40 mg capsule,delayed 40 mg PO DAILY #90 ta b-caps 03/18/25 release tramadol 50 mg tablet 50 mg PO Q8H PRN pain #10 ta bs 03/19/25 nicotine 21 mg/24 hr daily 1 patch transdermal Q24H #2 8 ea 03/23/25 transdermal patch (Nicoderm CQ) Allergies Allergy/AdvReac Type Severity Reaction Status Date / Time Penicillins Allergy Severe Anaphylaxsi Verified 03/24/25 00:21 s Sulfa (Sulfonamide Allergy Severe Skin Rash Verified 03/24/25 00:21 Antibiotics) General LELAND: 3 Exam Narrative Exam Narrative: Const: WDWN male in NAD. VS per triage. HEENT: NC/AT. Normal facial exam. Neck: Supple. Trachea midline. Lungs: Normal respiratory effort. Cor: RRR. GI: Soft/ND/NT. Large right inguinal hernia down into scrotum. Neuro: A+O x 3. Normal speech, mentation. Cranial nerves II - XII grossly intact. RLE with numbness/weakness. Ext: BUE normal with good radial pulses. LLE a little cool but normal strength and sensation, good femoral pulse, dopplerable PT pulse. RLE with monophasic dopplerable femoral pulse. Right foot is cold and white, unable to find pulses. Medical Decision Making Patient presenting to ED with right hip pain and right lower extremity numbness and weakness. Patient reports that both legs felt numb and tingly initially. Feels that his left leg is back to normal. He has some chronic right inguinal pain which is unchanged. The right lateral thigh and hip pain is new. He denies any back pain. Denies any upper extremity complaints. His right foot is cold and white. He has decreased sensation and weakness in the right lower extremity. Previous abdominal CT imaging couple of weeks ago showed a infrarenal AAA that is about 3-1/2 cm but thrombosed with only a 1 cm lumen. His left iliac artery was occluded but reconstituted distally. I do not think he fractured anything when he fell as he has normal range of motion. Given decreased femoral pulses and lack of pulses distally in the right leg with numbness and weakness I am concerned that some of the thrombus from the AAA has broken off and likely lodged in the femoral artery. I do not think this is spinal or stroke related given the other findings. Will establish IV access and give morphine for pain. Laboratory studies including coags. Will obtain EKG as well as pelvic x-ray due to his fall but this is not likely traumatic in nature. Call placed to [facility] to discuss with vascular. 01:15 - Discussed with vascular surgery, Dr. Brito, at [facility]. Would like CTA with run off done here. Start heparin in meantime and will make decision regarding transfer per tonight's imaging. Patient currently remains hemodynamically stable. His lactic acid is elevated to 3.1. His venous pH is 7.3. Chemistries unremarkable as is CBC. Pelvis x-ray per my read with no acute fracture. EKG is normal per my read. 02:45 - Patient with occlusion of the previous vascular channel that had been seen through the AAA previously. Now appears to have completely occluded off the aorto ileal arteries. He does report that he feels like the pain and numbness in the right leg is getting better. Patient has been accepted by vascular surgery, Dr. Pichardo, at [facility] and will be transported a machine applicator cementer level with heparin running by [facility]. Patient and family aware of findings and need for transfer and consent to [facility]. Medical Records Medical records reviewed: Yes I reviewed the patient's medical records. Medical records narrative: PCP notes, previous CT a/p read Imaging Data Radiologic Study: Attestation: I personally reviewed and interpreted this imaging study as follows: Imaging: X-Ray My impression: see [facility] Radiologic Study #2: Imaging: CT Scan Radiologist's impression: IMPRESSION: 1. The infrarenal abdominal aorta is completely thrombosed. This includes a completely thrombosed 3.2 cm fusiform aneurysmal dilatation of the abdominal aorta. 2. Large right inguinal hernia extending into the right hemiscrotum, containing multiple loops of unremarkable small bowel and its associated mesentery. No resulting obstruction or strangulation. 3. 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 4. Two-vessel runoff to the left foot as above. 5. Right common iliac artery is completely thrombosed. There is reconstitution of the severely atherosclerotic right external iliac and right internal iliac arteries. 6. The left common iliac artery is completely occluded. The left external iliac artery is completely occluded. 7. Two-vessel runoff to the right foot as above. Thank you for allowing us to participate in the care of your patient. Dictated and Authenticated by: Alton Edge MD Lab Data Lab results reviewed: Yes I reviewed the patient's lab results. Lab results narrative: see [facility] ECG Data Attestation: I personally reviewed and interpreted this ECG (s) as follows: Prior ECG tracings: available for review Interpretation: see EKG/[facility] Critical Care Time Critical Care Time Critical Care Time: Yes Total Critical Care Time: 60 Attestation: Upon my evaluation, this patient had a high probability of imminent or life- threatening deterioration, which required my direct attention, intervention, and personal management. I have personally provided 60 minutes of critical care time exclusive of time spent on separately billable procedures. Time includes monitoring for potential decompensation, ordering of tests and medications, review of laboratory and radiology results, discussion with consultants and documentation . Interventions were performed as documented above in procedures. PFS All Active Problems (Updated 03/24/25 @ 02:58 by Alphonso Tucker MD) Abdominal aorta thrombosis (Acute) AAA (abdominal aortic aneurysm) (Acute) Inguinal hernia, right (Acute) Diverticula of colon (Acute) Emphysema lung (Acute) COPD (chronic obstructive pulmonary disease) (Chronic) Atherosclerosis of aorta (Acute) Acute sinusitis (Acute) Sensorineural hearing loss of left ear (Acute) Mixed conductive and sensorineural hearing loss of right ear with restricted hearing of left ear (Acute) Chronic serous otitis media, right ear (Acute) Rising PSA level (Acute) Depression (Chronic) Abdominal pain (Acute) Annual physical exam (Acute) Family history of colon cancer (Chronic) History of adenomatous polyp of colon (Chronic) Review patient history, and agree with plan by Octavia FAIR-Elida Tubular adenoma (Acute 07/19/14) 07/12/14-DR. BLACK recommends 3 year repeat Tobacco use disorder (Acute) Pneumonia, organism unspecified (Acute) Hypertension (Acute 11/27/14) Hearing loss (Acute 02/24/86) A.S. Family hx of prostate cancer (Acute) Blindness of one eye (Acute 02/24/86) Medical History Hyperplastic colon polyp (~07/2023) Abnormal colonoscopy (07/12/14) 07/12/14, Dr Black tubular adenoma Family history of prostate cancer Hearing loss Blindness of one eye (L) Pneumonia Tobacco use disorder Surgical History H/O colonoscopy (~07/2023) Dr Black, negative, rec repeat 5 years Family History Mother , 80's Essential hypertension COPD (chronic obstructive pulmonary disease) Depression Heart disease Hyperlipidemia Neoplasm Asthma Father , 70's Diabetes Essential hypertension Heart disease Hyperlipidemia Neoplasm PROSTATE Brother Essential hypertension Depression Neoplasm Alcohol abuse Heart disease Hypertension Sister Essential hypertension Depression Neoplasm Colon cancer Alcohol abuse Hypertension Grandfather Neoplasm Grandmother Essential hypertension Heart disease Brother Colon cancer Diabetes Hypertension Sister Hypertension Social History (Reviewed 03/28/24 @ 11:26 by RAYMUNDO Morton Smoking/Tobacco Use Status: Current every day Tobacco Type: cigarettes Tobacco: How many years used: 48 Smokeless tobacco user: other (Cigarettes) Quit status: considering quitting Second Hand Exposure: Yes Smoking risk assessment performed?: Yes Alcohol Intake: current Alcohol Intake frequency: a few times a week Alcohol type: beer Drug use: Occasionally Substance use type: marijuana and sedatives Details: 2 drinks of etoh around 11am, rum and coke Adopted: No Household members: none Housing: house Communication Needs: Hard of Hearing Education Level: high school Do you need help understanding health information?: Rarely current occupation: [employer]visor Pets and animals: Yes Pets and animals: dog(s) Sexually active: No Do you think of yourself as: lesbian/ford/homosexual Current gender identity: male What is your relationship status?: How often do you talk on the phone with friends or family?: three or more times per week How often do you get together with friends or relatives?: once per week How often do you attend baptist or restorationism services?: decline to answer Do you belong to any clubs or organized social groups?: no Panel score (0-1 are the most socially isolated patients): 1 What type of physical activity do you participate in: none and other Details: working Duration: 45-60 minutes/day Frequency: daily Amena/Restorationism: None Special amena needs: No Agree to transfusion: Yes Seatbelt use: always Helmet use: Yes Helmet use: always Drive intox or ride w/intox ross carrier driver: No Working smoke detector in home: Yes Carbon monox detector in home: Yes Firearms in home: Yes Firearms unloaded and locked: Yes Do you feel safe at home: Yes Do you feel safe in your relationship?: Yes Victim of physical abuse: No Victim of emotional abuse: No Victim of sexual abuse: No
--- NOTE | 2025-03-24 00:29 | NUR.NOTE ---
Nursing Note: Provider at bedside, doppler used to check for pedal pulses, R foot is pale and cool and the L foot appears normal.
--- NOTE | 2025-03-24 00:30 | DI.RAD_ITS ---
Exam(s) XR PELVIS AP EXAM: XR PELVIS AP CLINICAL HISTORY: fall. TECHNIQUE: 2D digital imaging was performed. COMPARISON: No exams were available for comparison FINDINGS: AP supine view of the pelvis There is no evidence of pelvic nor hip fracture. No obvious degenerative changes in the hips. Vascular calcifications noted in the iliac arteries. IMPRESSION: No acute osseous findings in the pelvis and hips. DATA REPOSITORY: RADIATION DOSE DELIVERED:
--- NOTE | 2025-03-24 00:33 | NUR.NOTE ---
Nursing Note: Blood Pressures: L arm 99/48, R arm 112/48
--- NOTE | 2025-03-24 00:54 | NUR.NOTE ---
Nursing Note: No pulses to R foot with doppler, R femoral pulse very faint with doppler per provider.
[2025-03-24 00:58] LABS: BE (Venous) -4 mmol/L (-2-3); HCO3 (Venous) 23 mmol/L (23-28); O2 Sat (Venous) 38 %; TCO2 (Venous) 21 mmol/L (24-29); pCO2 (Venous) 45 mmHg (41-51); pO2 (Venous) 24 mmHg
[2025-03-24 00:59] LABS: HCT 41.8 % (40.0-50.0); HGB 14.4 g/dL (13.5-17.5); MCH 31.7 pg (27.0-33.0); MCHC 34.4 % (32.0-36.0); MCV 92 fL (80-95); MPV 9.1 fL (8.0-11.0); Platelet Count 217 10^3/uL (130-400); RBC 4.54 10^6/uL (4.36-5.78); RDW 12.2 % (11.8-14.1); RDW-SD 41.7 fL; WBC 10.11 10^3/uL (4.4-10.8)
--- NOTE | 2025-03-24 01:00 | RT.EKG_ITS ---
APPROVED REPORT Exam: Resting ECG Reason for Exam: vascular disease Patient Location: E HR:88 bpm ECG Measurements Heart Rate 88 AXIS NH 204 P 71 QRSd 93 QRS 69 QT 380 T 67 QTc 459 Conclusion Sinus rhythm...normal P axis, V-rate 60- 99 Normal Electrocardiogram
[2025-03-24] MEDS: MORPHine 10 MG/ML VIAL 4 MG IVP ×3 (01:01→03:27)
[2025-03-24] MEDS: Normal Saline 1,000 ML 1000 ML IV (01:05)
--- NOTE | 2025-03-24 01:10 | DI.CT_ITS ---
Exam(s) CT ABD AORTA CTA W RUNOFF EXAM: CT ABD AORTA CTA W RUNOFF CLINICAL HISTORY: right leg numbness and weakness. TECHNIQUE: Imaging Protocol: Axial computed tomography images with coronal and sagittal reformatted images were created and reviewed CONTRAST MATERIAL: Intravenous: Omnipaque 350 Contrast volume:150 mL Oral: None COMPARISON: No exams were available for comparison FINDINGS: AORTA: The abdominal aorta occluded below the level of the renal artery takeoff points. This includes thrombosis of 3.2 cm infrarenal abdominal aortic aneurysm and both common iliac arteries are also thrombosed. Retrograde flow in the internal iliac arteries reconstitutes flow in the external iliac arteries. The left external iliac artery severely diseased. The right external iliac artery is moderately diseased. Both common femoral arteries are atherosclerotic but patent. Both SFA arteries are patent but with multilevel serial stenoses both out occlusion and the SFA arteries are continuous with bilateral popliteal arteries. There is moderate disease in both popliteal arteries. No evidence of popliteal artery aneurysms. The tibioperoneal trunks are patent bilaterally exhibiting moderate disease. There is patent 3 vessel runoff in both calves. LIVER: Liver is hypodense implying steatosis. There no discrete focal hepatic lesions. GALLBLADDER/BILIARY: There are small layering gallstones in the gallbladder fundus. No evidence of acute cholecystitis. The CBD is not dilated. PANCREAS: No evidence of pancreatic mass nor dilatation of the pancreatic duct. SPLEEN: Spleen is not enlarged. There are no intrasplenic lesions. Splenic and portal veins are patent. ADRENALS: There are no significant adrenal masses. KIDNEYS: Both kidneys exhibit normal size. There is calcified plaque at the origin of both renal arteries, more prominent on the right side. Suspect stenosis at this level although there is no poststenotic dilatation of the right renal artery. No cysts evident. No calculi nor hydronephrosis. No solid renal masses. LYMPH NODES: There is no retroperitoneal nor para-aortic adenopathy. No obvious mesenteric masses. ABDOMINAL WALL: There is a right inguinal hernia which contains small bowel loops extending down to the right hemiscrotum. There is no bowel obstruction . PELVIS: There are no ischemic appearing bowel loops in the abdomen and pelvis. LYMPH NODES: There is no intrapelvic nor inguinal adenopathy. GI: No evidence of appendicitis.There is extensive sigmoid diverticulosis. There is no obvious acute diverticulitis. URINARY BLADDER: No calculi nor masses evident REPRODUCTIVE: Prostate size normal. Seminal vesicles unremarkable. OSSEOUS: No significant osseous lesions. Chronic disc space narrowing at L5-S1 level noted. No listhesis. IMPRESSION: 1. Leriche syndrome with occlusion of the abdominal aorta just below the level of the renal arteries. The abdominal aorta at and below this level is occluded as are both common iliac arteries. Retrograde flow in the internal iliac arteries reconstitutes flow in the external iliac arteries with moderate disease throughout the right external iliac artery and severe disease throughout the length of the left external iliac artery. 2. There is moderate multilevel disease in both SFA arteries as well as in the popliteal arteries. No evidence of popliteal artery aneurysms. 3. There is three-vessel runoff in both calves. 4. There is a right inguinal hernia which contains bowel loops extending down into the right hemiscrotum. There is no bowel obstruction. Preliminary the right report was reviewed RADIATION DOSE DELIVERED: 575.34mGy.cm Total DLP DATA REPOSITORY: All CT scans at this facility are submitted to the National Radiology Data Registry (NRDR) Dose Index Registry (DIR) with the [employer] (ACR). RADIATION OPTIMIZATION: All CT scans at this facility use at least one of these dose optimization techniques: automated exposure control; mA and/or kV adjustment per patient size (includes targeted exams where dose is matched to clinical indication); or iterative reconstruction.
--- NOTE | 2025-03-24 01:10 | NUR.NOTE ---
Nursing Note: Patient is at x-ray, family at the bedside.
[2025-03-24 01:17] LABS: Anion Gap 8.7 mmol/L (3-11); BUN 12 mg/dL (9-23); CO2 22.3 mmol/L (20.0-31.0); Calcium 8.7 mg/dL (8.3-10.6); Chloride 101 mmol/L (98-107); Glucose 110 mg/dL (74-106); Potassium 3.5 mmol/L (3.5-5.1); Sodium 132 mmol/L (136-145)
[2025-03-24 01:24] LABS: INR 1.1 (0.9-1.1); PTT Activated 25.3 sec (20.6-30.2); Prothrombin Time 10.4 sec (9.1-11.1)
[2025-03-24] MEDS: Normal Saline - Diluent 50 ML VIAL IJ ×2 (01:25→01:26)
[2025-03-24] MEDS: Normal Saline Flush 10 ML SYR IVP (01:25)
[2025-03-24] MEDS: Omnipaque 350 MG/ML 50 ML BTL IJ (01:26)
[2025-03-24] MEDS: Omnipaque 350 MG/ML 100 ML BTL IJ (01:26)
[2025-03-24] MEDS: Heparin in 0.45% NaCl 25,000 UNIT/250 ML BAG 11 UNIT IVINF (01:53)
--- NOTE | 2025-03-24 01:55 | DI.VRAD_ITS ---
PROCEDURE INFORMATION: Exam: XR Pelvis Exam date and time: 03/24/2025 1:12 AM Age: 64 years old Clinical indication: Injury or trauma; Fall; Blunt trauma (contusions or hematomas); Right; Hip TECHNIQUE: Imaging protocol: Radiologic exam of the pelvis. Views: 1 or 2 view. COMPARISON: CT ABDOMEN PELVIS W 03/12/2025 8:13 AM FINDINGS: Bones/joints: Unremarkable. No acute fracture. Soft tissues: Unremarkable. IMPRESSION: No acute findings. Dictated and Authenticated by: Alton Edge MD. Orderin Garrett Werner MD
[2025-03-24 01:56] VITALS: BP 163/62; PULSE 95; RESP 18; O2SAT 98
[2025-03-24 02:05] VITALS: BP 122/80; PULSE 99; RESP 19; O2SAT 97
--- NOTE | 2025-03-24 02:34 | DI.VRAD_ITS ---
PROCEDURE INFORMATION: Exam: CTA Abdominal Aorta and Bilateral Lower Extremities (Run-off) With Contrast Exam date and time: 03/24/2025 1:29 AM Age: 64 years old Clinical indication: Numbness and other: Right leg numbness and weakness; Lower extremity TECHNIQUE: Imaging protocol: Computed tomographic angiography of the of the abdominal aorta, pelvis and bilateral lower extremities with contrast. 3D rendering (Not supervised by radiologist): MIP and/or 3D reconstructed images were created by the technologist. Contrast material: OMNI 350; Contrast volume: 150 ml; Contrast route: INTRAVENOUS (IV); COMPARISON: CT ABDOMEN PELVIS W 03/12/2025 8:13 AM FINDINGS: Aorta: The infrarenal abdominal aorta is completely thrombosed. This includes a completely thrombosed 3.2 cm fusiform aneurysmal dilatation of the abdominal aorta. Celiac and mesenteric arteries: No occlusion or significant stenosis. Renal arteries: No occlusion or significant stenosis. Right iliac arteries: Right common iliac artery is completely thrombosed. There is reconstitution of the severely atherosclerotic right external iliac and right internal iliac arteries. Right femoral/popliteal arteries: The right common femoral artery is atherosclerotic but patent. No thrombosis or occlusion. Diffuse atherosclerosis of the right femoral artery with multifocal moderate luminal narrowing. No thrombosis or occlusion. Right popliteal artery is atherosclerotic and mildly narrowed but patent. No thrombosis or occlusion. Right infrapopliteal arteries: The right anterior tibial artery demonstrates proximal atherosclerotic calcification but is patent and can be traced as a patent dorsalis pedis artery as far as the proximal foot. The right posterior tibial artery is patent and can be traced as a patent lateral plantar branch well into the foot. The right peroneal artery can be traced as a patent vessels far as the ankle. Left iliac arteries: The left common iliac artery is completely occluded. The left external iliac artery is completely occluded. Left femoral/popliteal arteries: Left popliteal artery is atherosclerotic with multifocal moderate luminal narrowing. No thrombosis or occlusion. Left common femoral artery is atherosclerotic but patent. The left femoral artery is diffusely atherosclerotic but patent. No thrombosis or occlusion. Left infrapopliteal arteries: Left anterior tibial artery demonstrates multifocal atherosclerotic calcification but is patent and can be traced as a patent dorsalis pedis artery well into the foot. Left posterior tibial artery demonstrates proximal atherosclerotic calcification but is patent and can be traced as patent lateral plantar branch into the foot. The left peroneal artery can be traced as a patent vessels far is the ankle. Liver: Hepatic steatosis. Gallbladder and biliary ducts: Cholelithiasis. No cholecystitis or biliary ductal dilatation. Pancreas: Unremarkable. No mass. No ductal dilation. Spleen: Normal. No splenomegaly. Adrenal glands: Normal. No mass. Kidneys and ureters: Normal. No mass. Stomach and bowel: Colonic diverticulosis. No diverticulitis. No pneumatosis or portal/mesenteric venous gas. No bowel wall thickening or intestinal obstruction. Appendix: No evidence of appendicitis. Urinary bladder: Unremarkable. No mass. Reproductive: Unremarkable as visualized. Intraperitoneal space: No pneumoperitoneum or abscess. Lymph nodes: No lymphadenopathy. Bones/joints: No acute fracture. No dislocation. Soft tissues: Large right inguinal hernia extending into the right hemiscrotum, containing multiple loops of unremarkable small bowel and its associated mesentery. No resulting obstruction or strangulation. 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 IMPRESSION: 1. The infrarenal abdominal aorta is completely thrombosed. This includes a completely thrombosed 3.2 cm fusiform aneurysmal dilatation of the abdominal aorta. 2. Large right inguinal hernia extending into the right hemiscrotum, containing multiple loops of unremarkable small bowel and its associated mesentery. No resulting obstruction or strangulation. 3. 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 4. Two-vessel runoff to the left foot as above. 5. Right common iliac artery is completely thrombosed. There is reconstitution of the severely atherosclerotic right external iliac and right internal iliac arteries. 6. The left common iliac artery is completely occluded. The left external iliac artery is completely occluded. 7. Two-vessel runoff to the right foot as above. Dictated and Authenticated by: Alton Edge MD. Orderin Garrett Werner MD
[2025-03-24 02:53] VITALS: BP 145/85; PULSE 104; RESP 18; O2SAT 98
--- NOTE | 2025-03-24 03:00 | NUR.NOTE ---
Nursing Note: Pt. is reporting that sensation is returning to his R foot, color appears to be coming back to R foot as well.
== END 2025-03-24 04:27 | disposition short-term general hospital (02) ==
PROVIDERS: Emergency Provider Emergency Medicine; PCP Family Medicine
DX: I74.09 Other arterial embolism and thrombosis of abdominal aorta (principal)
CPT/HCPCS: 36415; 75635; 80048; 82805; 85027; 93005; 96361; 96374; 96376; 99291; 72170; 83605; 85610; 85730; 93010; J1644; J2270; J3490; Q9967